=== PATIENT | male | born 1945 | race Caucasian/White ===

== ENCOUNTER 2017-07-26 11:07 | Outpatient (CLI) | payer MEDICARE, BC | END 2017-07-26 11:08 | disposition home or self-care (01) | LOC: CTENTCT 11:07 | PROVIDERS: ATTEND Otolaryngology Plastic Surgery within the Head & Neck | DX: J32.9 Chronic sinusitis, unspecified (principal) | CPT/HCPCS: 70486 ==

== ENCOUNTER 2017-09-22 10:08 | Inpatient (IN) | payer MEDICARE, BC ==
[2017-09-22] MEDS ORDERED: Ondansetron HCl/PF 4 MG/2 ML Vial ONE (10:37)
[2017-09-22] MEDS ORDERED: Famotidine/PF 20 mg/2ml Vial ONE (10:38)
[2017-09-22] MEDS ORDERED: Mag-Al 1200 mg/1200 mg/30 ML UDCUP ONE (10:38)
[2017-09-22] MEDS ORDERED: Lidocaine Viscous Sol 2% 15 ml UD Cup ONE (10:38)
[2017-09-22 10:46] LABS: #Eosinphils 0.1 thou/uL (0.0-0.7); #Lymphocytes 1.2 thou/uL (1.20-3.40); #Monocytes 0.6 thou/uL (0.11-0.59); #Neutrophils 4.4 thou/uL (1.40-6.50); %Basophils 0.5 % (0.0-1.0); %Lymphocytes 18.3 % (21.0-51.0); %Monocytes 9.2 % (0.0-10.0); Hematocrit 38.5 % (42.0-52.0); Mean Platelet Volume 6.8 fL (7.4-10.4); White Blood Cell (WBC) Count 6.3 thou/uL (4.8-10.8)
[2017-09-22 11:12] LABS: Troponin I Less than 0.010 ng/mL (< 0.028)
[2017-09-22 11:31] LABS: Anion Gap 11 mmol/L (10-20); BUN (Urea Nitrogen) 16 mg/dL (8.4-25.7); Calc. Creatinine Clearance 0 mL/min (70-130); Carbon Dioxide 23 mmol/L (23-31); Chloride 106 mmol/L (98-107); Estimated GFR-MDRD 70
[2017-09-22 11:32] LABS: ALT (SGPT) 20 U/L (8-55); AST (SGOT) 27 U/L (5-34); Alkaline Phosphatase 70 U/L (40-150); Bilirubin, Total 0.7 mg/dL (0.2-1.2); Calcium 10.1 mg/dL (7.8-10.44); Globulin 4.8 g/dL (2.4-3.5); Protein, Total 8.6 g/dL (5.8-8.1)
[2017-09-22] MEDS ORDERED: ISOVUE-370 76%-LOCM 1 ML ONE (11:42)
--- NOTE | 2017-09-22 11:52 | RAD ---
CHEST 1 VIEW: Date: 09/22/17 COMPARISON: 10/03/16. HISTORY: Chest pain x4 days. FINDINGS: Normal cardiac silhouette. Pulmonary vessels and hilum are normal. No consolidation or mass. No pneum othorax or osseous abnormalities. IMPRESSION: No acute cardiopulmonary process. POS: [facility]
--- NOTE | 2017-09-22 14:12 | CT ---
ABDOMEN CT WITH CONTRAST PELVIC CT WITH CONTRAST: Date: 09/22/17 COMPARISON: 09/25/13. HISTORY: Chest tightness x4-5 days. Previous smoker. Lethargic. TECHNIQUE: Abdomen and pelvic CT are performed with IV contrast. Enteric contrast was not administered. Coronal reformatted images are submitted for interpretation. FINDINGS: ABDOMEN CT: Incompletely evaluated right hilar mass measuring 2.2 x 2.3 cm may represent a right hilar lymph node . There is an incompletely evaluated nodule in the right lower lobe measuring 2.6 x 1.5 cm. Heart siz e is within normal limits. No evidence of significant pericardial fluid. The descending thoracic aort a and abdominal aorta have normal caliber. No periaortic fat stranding. Symmetric attenuation of the psoas muscles. Gallbladder is surgically absent. Intra and extrahepatic portal vein is patent. The liver, pancreas, and right adrenal gland have appropriate enhancement. There is a 1.2 cm nodule associated with the le ft adrenal gland, incompletely evaluated. Subcentimeter hypodensity in the spleen cannot be further a ssessed. Hypodensities in the left and right kidney may represent cortical cysts. Symmetric enhancement of the kidneys. Bilaterally, no obstructive uropathy. Limited evaluation of the alimentary canal due to lack of oral contrast. No evidence of bowel obstruction. Ileocecal junction is normal. Normal caliber air-filled appendix. T here is evidence of diverticulosis, without evidence of diverticulitis. There is evidence of periportal lymphadenopathy, measuring 8.9 x 12.8 cm on the coronal images. There is an enlarged paraesophageal lymph node measuring 3.2 x 2.9 cm, enlarged gastrohepatic lymph node m easuring 1.2 x 1.4 cm, enlarged perigastric lymph node measuring 1.4 x 2.3 cm, and enlarged aortocava l lymph node measuring 1.8 x 1.4 cm. There is no mesenteric mass, free air, or free fluid. PELVIC CT: Enlarged bilateral external iliac lymph nodes measuring 1.6 x 2.7 on the right and 1.5 x 2.2 cm on th e left. Enlarged bilateral inguinal lymph nodes are also noted. No pelvic mass, free air, or free flu id. Urinary bladder is unremarkable. Prostatic calcifications are noted. There are no osteoblastic or osteolytic lesions. IMPRESSION: 1. Lymphadenopathy as detailed above. There is concern for possible lymphoma Correlate clinically. 2. Incompletely evaluated nodule in the right lower lobe. 3. Indeterminate left adrenal nodule. POS: [facility]
[2017-09-22] MEDS ORDERED: Acetaminophen 325 MG TAB PO PRN (15:20)
[2017-09-22] MEDS ORDERED: Ondansetron HCl/PF 4 MG/2 ML Vial IVP PRN (15:20)
[2017-09-22] MEDS ORDERED: Ondansetron ODT 4 MG TAB SL PRN (15:20)
--- NOTE | 2017-09-22 16:43 | HP ---
HISTORY OF PRESENT ILLNESS: Mr. Coley is a 72-year-old male treated by Dr. Jose Ramon Martinez wi th known hypertension, hyperlipidemia, and mild CAD by 10/04/[address] Ellen kirk, who presents to the hospital with chest pain and abdominal pain. He indicates that he has had chest pain and abdominal pain for years. Over the last few weeks, he has been having abdominal pain, chest pain, and nausea following a meal. It is intermittent condition that appears to be not concer shai except following meals. Just a few weeks ago, he underwent an EGD by Dr. Leyva to assist in evalu ation of this problem. He denies any fever, cough, or sore throat, but does have some chronic rhinor sara and he did have some significant nasal congestion that was treated recently with a balloon plast y to the sinus area. He also reports having some postauricular lumps that was previously treated by ENT with antibiotics and without biopsy. He had showed with the emergency room doctor that he had so me shortness of breath and some sweating. He also tells me that while he has not had any major sweat ing episodes he has felt warm lot lately and this is corroborated by his . PAST MEDICAL HISTORY: 1. Hypertension. 2. Hyperlipidemia. 3. GERD. 4. History of prostatitis. 5. Mild coronary artery disease. 6. Obesity. 7. Nasal congestion. PAST SURGICAL HISTORY: 1. Colon polyp resection in 2014. 2. Hemorrhoidectomy. 3. Cholecystectomy. 4. Vasectomy. 5. Cystoscopy. 6. Sinus procedure/balloon plasty. 7. Cardiac catheterization on 10/04/2016, which showed mild disease, (about 20% numerous vessels). ALLERGIES: No known drug allergies. CURRENT MEDICATIONS: Amlodipine 5 mg daily, aspirin 81 mg daily, losartan 25 mg daily, metoprolol 50 mg twice daily, tamsulosin 0.4 mg daily, fish oil 1000 two twice daily, Dexilant 60 mg daily, finast eride 5 mg daily, atorvastatin 25 mg daily. SOCIAL HISTORY: The patient is . He has two children. He has a remote [id number] history of tobacco. He occasionally drinks alcohol. 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 PHYSICAL EXAMINATION: VITAL SIGNS: Blood pressure 131/62, pulse 58, respiratory rate 18, temperature 97.4, 96% pulse oxime try. GENERAL: Obese male in no acute distress, sitting in his chair independently. He is alert and oriented x3. His mood is euthymic. His thought processes are coherent, logical, and goal direc monica without loose association or flight of ideas. HEENT: No conjunctivitis. Oral cavity without erythema or exudate. NECK: Supple. No thyromegaly. LUNGS: Clear to auscultation. CARDIAC: Regular rate and rhythm without murmur, gallop or rub. ABDOMEN: Protuberant, soft, nontender to palpation in all 4 quadrants. No lower extremity edema, no ntender. LYMPH NODES: Lumps/lymph nodes are seen behind this left ear, superficial, about 2 cm in diameter. Behind his right ear, he has one that is about 1.5 cm in diameter and at the base of his right latera l neck is one that is also 1.5 cm in diameter. IMAGING STUDIES: Electrocardiogram normal sinus rhythm, no acute ST-T wave changes. LABORATORY AND X-RAY FINDINGS: White blood cell count 6.3, hemoglobin 12.8. Sodium 136, potassium 4 .1, CK-MB is 8.5. Troponin I is normal. Liver enzymes normal. BUN 16, creatinine 1.04. Chest x-ra y is normal. Periportal lymphadenopathy measuring 8.9 x 12.8 cm. There is an enlarged paraesophagea l lymph node measuring 3.2 x 2.9 and others including gastrohepatic, perigastric and aortocaval lymph nodes. In the pelvic area, there is also external iliac lymph node enlargement that is seen. ASSESSMENT: 1. Postprandial abdominal pain and nausea. 2. Chest pain that seems atypical with normal EKG and nonelevated troponin I. 3. Mild coronary artery disease. 4. Diffuse lymphadenopathy in locations specified above. Discussed with patient and his the ra nge of possibilities to include mild infectious disease process versus other more serious and urgent problem such as a malignancy. 5. History of hypertension, history of hyperlipidemia, history of gastroesophageal reflux disease, h istory of prostatitis, obesity. PLAN: 1. Hospitalization. 2. Serial cardiac enzymes. 3. Specialist consultation.
[2017-09-22 17:19] LABS: Troponin I Less than 0.010 ng/mL (< 0.028)
[2017-09-23] MEDS: Losartan Potassium 25 MG TAB PO SCH (08:40)
[2017-09-23] MEDS: Finasteride 5 MG TAB PO SCH (08:40)
[2017-09-23] MEDS: Fish Oil 1,000 MG CAP PO SCH (08:40)
[2017-09-23] MEDS: Mag-Al 1200 mg/1200 mg/30 ML UDCUP PO SCH ×3 (08:40→17:07)
[2017-09-23] MEDS: Amlodipine 5 MG TAB PO SCH (08:40)
[2017-09-23] MEDS: Atorvastatin Calcium 20 MG TAB PO SCH (08:42)
[2017-09-23] MEDS: Tamsulosin HCl 0.4 MG CAP PO SCH (08:42)
[2017-09-23] MEDS: Aspirin 81 mg Enteric Coated Tablet PO SCH (08:42)
[2017-09-23] MEDS: 1/2 NS w/KCL 20 mEq 1,000 ML IV SCH ×3 (10:47→21:23)
--- NOTE | 2017-09-23 10:52 | PRG ---
DATE OF SERVICE: 09/23/2017 HISTORY OF PRESENT ILLNESS: This is a 72-year-old white male with a 3-week history of nausea. Appro ximately 3 weeks ago, he was seen by Dr. Romeo Bo and underwent angioplasty of the sinuses. He was placed on antibiotics. Ever since then, he has had some nausea. He saw Dr. Leyva this past weeke nd and underwent an EGD which the patient states revealed some gastritis. However, the patient has h ad persistent nausea and a poor appetite. A CT scan was performed which revealed diffuse lymphadenop athy along the spinal cord. The patient also reports that over the past 3 weeks he has noticed some swelling behind his ears and of his neck. OBJECTIVE: VITAL SIGNS: Temperature 97.0, pulse 73, respirations 18, blood pressure 137/63, pulse ox 96. GENERAL: The patient is complaining of nausea. HEENT: Remarkable 3-4 cm lymph node on the supraclavicular region with also enlarged lymph nodes pos tauricular. HEART: Regular rate and rhythm. LUNGS: Clear. ABDOMEN: Soft, nontender. LABORATORY: Today, none. ASSESSMENT: 1. Lymphadenopathy, rule out lymphoma. Oncology has been consulted. We will consult General Surger y for a biopsy. The patient has a strong likelihood of having lymphoma. 2. Nausea secondary to #1 and also could have nausea secondary to a course of antibiotics per Dr. Yolie strickland. 3. Three weeks post-sinus surgery. 4. Hypertension. 5. Hyperlipidemia. 6. Reflux. 7. History of prostatitis. 8. Coronary artery disease. 9. Chronic sinusitis. PLAN: 1. Hydrate with IV fluids. 2. Protonix q.12. 3. Phenergan p.r.n. 4. General surgery consult for possible biopsy of the lymphadenopathy. 5. Consult Dr. Leyva in the a.m. for followup. The patient has been followed by Dr. Gonzales.
[2017-09-23] MEDS ORDERED: Promethazine HCl 25 MG/ML VIAL IM/IV PRN (11:01)
[2017-09-23] MEDS ORDERED: Sodium Chloride 0.9% 500 ML IV SCH (11:15)
[2017-09-23] MEDS ORDERED: ISOVUE-370 76%-LOCM 1 ML ONE (11:47)
--- NOTE | 2017-09-23 15:48 | CT ---
CT NECK WITH CONTRAST CT CHEST WITH CONTRAST: Date: 09/23/17 INDICATION: Adenopathy. FINDINGS: There are abnormal enlarged lymph nodes of the neck and chest, with dominant teresa size of 2.8 cm in diameter involving the posterior right neck at the upper cervical region. There are additional mildly enlarged bilateral cervical chain lymph nodes, as well as periclavicular lymph nodes. There is congl omerate adenopathy of the subcarinal region which measures approximately 5.1 cm transverse. Patient's previously described teresa mass of the abdomen is incidentally imaged. Reference preceding report fo r details. There is a rounded pulmonary nodule with punctate calcification of the subpleura of the ri ght lower lobe measuring approximately 15.0 mm in diameter. There is punctate subpleural nodularity o f the lungs, bilaterally, with additional scattered ground-glass nodularity. Scattered osseous degene rative changes are present. IMPRESSION: Adenopathy of the neck and chest. Consider PET CT for further evaluation, in order to discern metabol ic activity of the patient's diffuse adenopathy. POS: [facility]
--- NOTE | 2017-09-23 18:43 | CON ---
DATE OF CONSULTATION: 09/23/2017 REASON FOR CONSULTATION: Generalized adenopathy. HISTORY OF PRESENT ILLNESS: The patient is a 72-year-old man with a known history of hypertension, h yperlipidemia, and coronary artery disease who presented to the hospital with atypical chest and abdo jose pain. This was associated with postprandial nausea. He also gives history of enlarged cervica l lymph nodes present for at least one year and unresponsive to antibiotics. Within the last few wee , he did undergo an EGD by Dr. Leyva, which reportedly was negative for serious findings. He has dill d no fever, night sweats, or significant weight loss. Evaluation during the hospitalization includes CBC, which is normal except for a hemoglobin of 12.8. The white blood cell count is 6.3 with normal differential. Platelet count is 297,000. Chemistries are normal except for an elevated globulin at 4.8. Imaging has included a CT scan of the abdomen and pelvis, which shows an incompletely evaluated right hilar mass measuring 2.3 cm and a right lower lobe nodule measuring 2.6 cm. There is a small 1.2 cm nodule in the left adrenal gland. There is periportal adenopathy measuring 8.9 x 12.8 cm and an enl arged paraesophageal lymph node measuring 3.2 cm in maximum dimension. Additional pericaval adenopat hy and bilateral inguinal adenopathy and external iliac nodes are noted. I am asked to see the patie nt to provide further management recommendations. ALLERGIES: None. MEDICATIONS ON ADMISSION: Amlodipine, aspirin, losartan, metoprolol, tamsulosin, fish oil, Dexilant, finasteride and atorvastatin. PAST MEDICAL ILLNESS: There is a history of hypertension, hyperlipidemia, GERD, prostatitis, mild co ronary disease, obesity, and nasal congestion. PAST SURGICAL HISTORY: He had a colon polyp, polyp removed in 2014. He has undergone hemorrhoidecto my, cholecystectomy, vasectomy, and sinus balloon plasty in the recent past. He has also undergone a cystoscopy. SOCIAL HISTORY: The patient is with 2 children. His is present during my evaluation to day. He has a remote [id number] history of tobacco. He does not drink alcohol heavily. 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 REVIEW OF SYSTEMS: Except as mentioned in the history of present illness, he denies significant card iopulmonary, GI, , musculoskeletal, or neurological complaints. PHYSICAL EXAMINATION: VITAL SIGNS: Temperature 97.4, pulse 56 and regular, respirations 16, blood pressure 127/73. GENERAL: The patient is a well-developed and well-nourished, but obese man in no acute distress. He is alert, oriented, and cooperative. HEENT: The extraocular movements are intact. NECK: Supple, without masses. LUNGS: Clear. CARDIOVASCULAR: Regular rate and rhythm without murmur, rub, gallop or click. ABDOMEN: Obese. He is obese, but there is no mass, organomegaly, masses or ascites. EXTREMITIES: No clubbing, cyanosis or edema. SKIN: Normal. LYMPH: There is generalized adenopathy in the anterior and posterior cervical regions, supraclavicul ar area, bilateral axilla and bilateral axilla. The nodes in the cervical region measuring up to 2-3 cm. The lymph nodes in the axillae bilaterally measure up to perhaps 4 cm. MUSCULOSKELETAL: No active arthritis. NEUROLOGIC: No focal findings. LABORATORY: See history of present illness. IMAGING: See history of present illness. IMPRESSION: Generalized lymphadenopathy typical of lymphoma. 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 His symptoms may very well be related to t he large teresa mass in the daljit hepatis. I did discuss the case with Dr. Casey, General Surgery, who has been consulted. We agreed, proceeding with a CT guided core biopsy of an axillary lymph node . Should establish a diagnosis with minimal morbidity. I have ordered a serum protein electrophores is and LDH for further evaluation of the elevated total protein and the question of possible lymphoma . Thanks very much for allowing me to provide my recommendations. I will follow with you. If the nanette ent is otherwise able to be discharged, I am happy to follow him in the office after the CT guided bi opsy.
[2017-09-23] MEDS ORDERED: Zolpidem Tartrate 5 MG TAB PO PRN (21:23)
--- NOTE | 2017-09-24 00:09 | CON ---
DATE OF CONSULTATION: 09/23/2017 CHIEF COMPLAINT: Lymphadenopathy. HISTORY: Mr. Coley is a 72-year-old man who presented to the emergency room with epigastric and ches t pain and nausea. He states that for the past few weeks he has been having intermittent problems wi th nausea and epigastric pain radiating up into his chest after meals. He does have a history of ref lux and underwent an EGD by Dr. Leyva on Sunday, which was reportedly unremarkable. He also recently went to ENT for some lumps in his neck and was placed on antibiotics. When he came to the emergency room, he underwent CT of the abdomen and pelvis and this revealed extensive lymphadenopathy as well as some hilar adenopathy and a small mass in his lung. He had enlarged iliac lymph nodes but the ing uinal lymph nodes were not very enlarged. He states that lumps in his neck has been present for 6 mo nths to a year, but they are not painful, so he had not previously brought them to medical attention. He has 2 lumps on the left side of his neck, one on the right and one in the right supraclavicular area. He states that though one on the left has gotten a little smaller, but now he has 2 instead of 1. He denies any history of trauma or infection to the upper body or head and he has not noticed lizeth mps anywhere else. The pain in his epigastric area radiates up into his chest and somewhat to his ba ck, but the nausea is making it difficult for him to either for him to eat at all. His says sabiha t he has not been eating at all for the past couple of days due to the nausea. He denies weight loss , although he thinks he has lost a little bit of weight recently because of not eating. He has had s ome episodes of feeling hot and sweaty, but no soaking sweats. PAST MEDICAL HISTORY: Hypertension, hyperlipidemia, GERD, coronary artery disease, prostatitis, and obesity. PAST SURGICAL HISTORY: Hemorrhoidectomy and cholecystectomy. He has also undergone a vasectomy and cystoscopy, sinus surgery and a cardiac catheterization which showed mild disease and he has had a co smith polyp removed a couple of years ago. ALLERGIES: He has no known drug allergies. OUTPATIENT MEDICATIONS: Include amlodipine, aspirin, losartan, metoprolol, Flomax, fish oil, Dexilan t, finasteride and atorvastatin. SOCIAL HISTORY: He is a former smoker, but quit many years ago. Drinks socially and does not use an y illicit drugs. PHYSICAL EXAMINATION: GENERAL: Reveals a healthy-appearing man in no acute distress. He is obese. HEENT: Reveals 2 enlarged lymph nodes in the left posterior chain which are mobile and nontender and one enlarged lymph node in the right postauricular area as well as a larger lymph node in the right supraclavicular fossa. He has a small lipoma over his left shoulder. He has a large lymph node in h is left axilla which is mobile. I do not appreciate any enlarged lymph nodes on the right. HEART: Regular in its rate and rhythm without murmurs, rubs or gallops. LUNGS: Clear to auscultation bilaterally. ABDOMEN: Soft and nondistended. He is mildly tender to palpation in the epigastric area without pal pable masses or hernias. EXTREMITIES: Warm and well perfused without edema. No palpable femoral lymph nodes. LABORATORY AND X-RAY FINDINGS: White count is normal. Electrolytes are unremarkable. Troponin is n egative. CT images are reviewed and I agree with the written report. He has enlarged lymph nodes in the paraesophageal and periportal areas as well as in the gastrohepatic area, aortocaval and iliac a reas. ASSESSMENT: 1. Abdominal pain and nausea. This could potentially be related to the gastrohepatic lymph nodes wh ich is quite large and could conceivably be causing some gastric outlet emptying issues. He has prev iously undergone cholecystectomy. His LFTs are normal and a recent EGD was unremarkable. I recommen d symptomatic treatment and continue proton pump inhibitors for this. 2. Extensive lymphadenopathy. The most easily accessible lymph nodes would likely be the left axill wendie lymph node which is quite enlarged. This should be easily accessible to ultrasound guided core b iopsy. If the left axillary lymph node is not suitable then the right supraclavicular one of the nec k lymph nodes could be sampled. If core biopsy is nondiagnostic, then excisional lymph node biopsy c an be done. I have written an order for ultrasound guided core biopsy by Radiology tomorrow. If thi s is inadequate I will follow up and schedule him for an excisional biopsy. In addition, I have orde red a CT of the neck and chest since these areas were not previously imaged and knowing the extent of his adenopathy is important for staging and monitoring purposes.
[2017-09-24 05:49] LABS: #Eosinphils 0.3 thou/uL (0.0-0.7); #Lymphocytes 1.3 thou/uL (1.20-3.40); #Monocytes 0.7 thou/uL (0.11-0.59); #Neutrophils 3.5 thou/uL (1.40-6.50); %Basophils 0.6 % (0.0-1.0); %Eosinophils 4.6 % (0.0-10.0); %Lymphocytes 22.3 % (21.0-51.0); %Monocytes 11.5 % (0.0-10.0); Hematocrit 36.5 % (42.0-52.0); Mean Platelet Volume 6.9 fL (7.4-10.4); Red Blood Cell (RBC) Count 3.87 mill/uL (4.70-6.10); White Blood Cell (WBC) Count 5.7 thou/uL (4.8-10.8)
[2017-09-24 06:13] LABS: Anion Gap 8 mmol/L (10-20); BUN (Urea Nitrogen) 13 mg/dL (8.4-25.7); Calc. Creatinine Clearance 105 mL/min (70-130); Calcium 9.7 mg/dL (7.8-10.44); Carbon Dioxide 26 mmol/L (23-31); Chloride 107 mmol/L (98-107); Estimated GFR-MDRD 64
--- NOTE | 2017-09-24 08:19 | PRG ---
DATE OF SERVICE: 09/24/2017 SUBJECTIVE: The patient is doing well this morning. No nausea this morning. The patient was given an IV bolus yesterday as well as Protonix and Phenergan. He was also seen by Dr. Gallegos and Dr. Zackery judd. OBJECTIVE: VITAL SIGNS: Temperature 97.9, pulse 60, respirations 17, pulse ox 94, blood pressure 131/59. HEART: Regular rate and rhythm. LUNGS: Clear. ABDOMEN: Soft. LABORATORY DATA: White count 5.7, H&H is 12 and 36, platelet of 263. Electrolytes normal. Creatini ne 1.1, BUN 13, LDH is 272, blood sugar is 91. ASSESSMENT: 1. 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 2. Nausea, improved. Could be related to the lymphoma versus previous antibiotics. 3. Postop 3 weeks status post sinus surgery. 4. Hypertension. 5. Hyperlipidemia. 6. Reflux. 7. Prostatitis history. 8. Coronary artery disease. 9. Chronic sinusitis. PLAN: 1. Scheduled with Dr. Casey today to undergo a left axillary lymph node biopsy. 2. Continue Phenergan and Protonix. 3. Possible discharge today.
[2017-09-24] MEDS: Mag-Al 1200 mg/1200 mg/30 ML UDCUP PO SCH ×2 (09:54→13:59)
[2017-09-24] MEDS: Fish Oil 1,000 MG CAP PO SCH ×2 (09:55→10:00)
[2017-09-24] MEDS: Finasteride 5 MG TAB PO SCH (09:55)
[2017-09-24] MEDS: Losartan Potassium 25 MG TAB PO SCH (09:55)
[2017-09-24] MEDS: Tamsulosin HCl 0.4 MG CAP PO SCH (09:56)
[2017-09-24] MEDS: 1/2 NS w/KCL 20 mEq 1,000 ML IV SCH (09:56)
[2017-09-24] MEDS: Atorvastatin Calcium 20 MG TAB PO SCH (09:56)
[2017-09-24] MEDS: Aspirin 81 mg Enteric Coated Tablet PO SCH (09:56)
[2017-09-24] MEDS: Amlodipine 5 MG TAB PO SCH (09:56)
[2017-09-24 11:12] LABS: PTT 29.6 SEC (22.9-36.1); Prothrombin Time 13.6 SEC (12.0-14.7)
[2017-09-24] MEDS ORDERED: Lidocaine 1% PF 5 ML VIAL ONE (11:26)
[2017-09-24 13:41] VITALS: BMI 37.6
[2017-09-24 15:58] VITALS: BP 125/58; TEMP 97.9
--- NOTE | 2017-09-25 11:23 | DIS ---
DATE OF ADMISSION: 09/22/2017 DATE OF DISCHARGE: 09/24/2017 DISCHARGE DIAGNOSES: 1. Generalized lymphadenopathy, rule out lymphoma. 2. Nausea, improved. 3. Postop #3, status post sinus surgery. 4. Hypertension. 5. Hyperlipidemia. 6. Reflux. 7. Prostatitis history. 8. Coronary artery disease. 9. Chronic sinusitis. DISCHARGE MEDICATIONS: Amlodipine 5 q. day, aspirin 81 q. day, losartan 25 q. day, metoprolol 50 b.i .d., Flomax 0.4 q. day, fish oil 1000 b.i.d., Dexilant 60 q. day, finasteride 5 q. day and Lipitor 25 q. day. BRIEF HISTORY: This is a 72-year-old white male with the above medical problems who presented to the hospital with chest pain and abdominal pain. Over the past several weeks, this has become progressi vely worse. He recently had an EGD, which was unremarkable by Dr. Leyva. He denied any fever, cough or sore throat. He also recently underwent sinus angioplasty by Dr. Bo. However, the patient pr esented to the emergency room with chest pain, some shortness of breath and sweating. He has just no t been feeling well. HOSPITAL COURSE: The patient appeared somewhat dehydrated. He has had quite a bit of nausea lately. His chest pain was felt not to be cardiac related. However, on examination, he was found to have d iffuse lymphadenopathy. A CAT scan was obtained of his chest and abdomen and he was found to have di ffuse lymphadenopathy consistent with lymphoma. Dr. Casey was consulted for a lymph node biopsy, w [facility] results are pending. Dr. Gallegos was also consulted. He will see the patient on an outpatient basis after his pathology report returns. The patient was given IV fluids. He is now feeling much b jo, ready for discharge. He will be given some Phenergan and follow up in the office in the near future. The possibility cancer has been discussed with the patient and hopefully his prognosis will be good.
[2017-09-26 12:15] LABS: A/G Ratio 0.8 (0.7-1.7); Albumin 3.2 g/dL (2.9-4.4); Alpha 1 0.2 g/dL (0.0-0.4); Alpha 2 0.7 g/dL (0.4-1.0); Gamma 2.2 g/dL (0.4-1.8); Globulin, Total 4.2 g/dL (2.2-3.9); M-Spike 0.5 g/dL (Not Observed)
== END 2017-09-24 16:59 | disposition home or self-care (01) | DRG 824 ==
LOC: ERS 10:08 → 2NO 15:17
PROVIDERS: ADMIT Family Medicine; ATTEND Family Medicine
PROC: 07B63ZX Excision of Left Axillary Lymphatic, Percutaneous Approach, Diagnostic (ICD-10-PCS; principal; 2017-09-24)
DX: C85.11 Unspecified B-cell lymphoma, lymph nodes of head, face, and neck (principal); C85.92 Non-Hodgkin lymphoma, unspecified, intrathoracic lymph nodes; I10 Essential (primary) hypertension; C85.84 Other specified types of non-Hodgkin lymphoma, lymph nodes of axilla and upper limb; C85.93 Non-Hodgkin lymphoma, unspecified, intra-abdominal lymph nodes; E78.5 Hyperlipidemia, unspecified; Z87.891 Personal history of nicotine dependence; I25.10 Atherosclerotic heart disease of native coronary artery without angina pectoris; E66.9 Obesity, unspecified; Z68.37 Body mass index [BMI] 37.0-37.9, adult; K21.9 Gastro-esophageal reflux disease without esophagitis; J32.9 Chronic sinusitis, unspecified
CPT/HCPCS: 36415; 38505; 70491; 71010; 71260; 74177; 80048; 80053; 82553; 83615; 83880; 84165; 84484; 85025; 85610; 85730; 88184; 88307; 88341; 88342; 88360; 93005; 96374; 96375; J2001; J2405; J2550; Q0162; S0028

== ENCOUNTER 2017-10-12 13:33 | Outpatient (CLI) | payer MEDICARE, BC | END 2017-10-12 13:34 | disposition home or self-care (01) | LOC: ULT 13:33 | PROVIDERS: ATTEND Internal Medicine Hematology & Oncology | DX: Z51.11 Encounter for antineoplastic chemotherapy (principal); C83.18 Mantle cell lymphoma, lymph nodes of multiple sites; I07.1 Rheumatic tricuspid insufficiency; Z79.899 Other long term (current) drug therapy | CPT/HCPCS: 93306 ==

== ENCOUNTER 2017-10-17 05:54 | Day surgery (SDC) | payer MEDICARE, BC ==
[2017-10-16 08:32] VITALS: BMI 38.2
[2017-10-17] MEDS ORDERED: CEFAZOLIN/Water 2 GM/20 ML SYRINGE ONE (06:53)
[2017-10-17] MEDS ORDERED: Bupivacaine/Epinephrine 0.25% 30 ML VIAL ONE (06:55)
[2017-10-17] MEDS ORDERED: Lidocaine 2% PF 5 ML VIAL ONE (06:55)
[2017-10-17] MEDS ORDERED: PROPOFOL 40 ML ONE (08:19)
--- NOTE | 2017-10-17 09:48 | RAD ---
CHEST ONE VIEW: History: Left Mediport placement. Comparison: 09-22-17 FINDINGS: There is a Mediport catheter placed with the tip in the inferior SVC. Heart size is prominent. Promin ence of the hilum. Mild interstitial prominence. IMPRESSION: Uncomplicated placement of Mediport catheter. POS: [facility]
[2017-10-17] MEDS ORDERED: PROPOFOL 200 MG/20 ML VIAL ONE (12:56)
--- NOTE | 2017-10-24 16:41 | PDOC.OP ---
Operative Note - Operative Note Operative Note: PROCEDURE: Left subclavian MediPort placement with fluoroscopic guidance SURGEON: Trudy Casey M.D. DATE OF PROCEDURE: 10/17/2017 PREOPERATIVE DIAGNOSIS: Lymphoma POSTOPERATIVE DIAGNOSIS: Lymphoma HISTORY: Patient is diagnosed with lymphoma. Chemotherapy has been recommended and the oncologist has requested MediPort placement for this. OPERATIVE PROCEDURE IN DETAIL: After informed consent was obtained and appropriate preoperative antibiotics were administered, the patient was taken to the operating room and placed in supine position and monitored anesthesia care was administered. The patient was then placed in Trendelenburg position and the subclavian vein accessed easily on the first attempt with excellent flow of dark venous non-pulsatile blood. A wire threaded easily and was confirmed to be in the superior vena cava by fluoroscopy. Additional local anesthesia was infused to the skin and subcutaneous tissues lateral and inferior to the access site. The skin incision was extended from the wire laterally and a subcutaneous pocket developed inferiorly. A Mediport was obtained and confirmed to fit in the subcutaneous pocket. This was secured inferiorly to the pectoralis fascia with a Prolene suture, which was clamped, but not tied. The dilator and sheath were then placed over the wire and the dilator and wire removed leaving the sheath in place. The clamped MediPort tubing was tunneled through the sheath, which was then split and removed leaving the MediPort tubing in place. The tubing was adjusted until the tip was confirmed by fluoroscopy to be in the superior vena cava just above the atrium. The tubing was clamped at the skin level and cut and the tubing secured to the port, which was then placed in the subcutaneous pocket. The previously placed suture was secured and two additional sutures were placed to fix the port in place within the pocket. The port was aspirated with the Wilson needle and had excellent flow of dark venous non-pulsatile blood and easily flushed without resistance. The subcutaneous tissues were closed with a running Monocryl suture, following which the skin was closed with a running subcuticular Monocryl suture. Dermabond dressings were placed and the hub was again accessed through the skin and confirmed to easily aspirate and easily flush. The course of the catheter was confirmed by fluoroscopy to be smooth with the tip appropriately located in the superior vena cava. The patient was taken her back to the day stay unit in good condition. Estimated blood loss was minimal. There were no complications. There were no specimens.
== END 2017-10-17 09:45 | disposition home or self-care (01) ==
LOC: SDC 05:54
PROVIDERS: ATTEND Surgery
PROC: 05H633Z Insertion of Infusion Device into Left Subclavian Vein, Percutaneous Approach (ICD-10-PCS; principal; 2017-10-17)
DX: C85.18 Unspecified B-cell lymphoma, lymph nodes of multiple sites (principal); I10 Essential (primary) hypertension; E78.5 Hyperlipidemia, unspecified; K21.9 Gastro-esophageal reflux disease without esophagitis; Z90.49 Acquired absence of other specified parts of digestive tract; Z98.52 Vasectomy status; Z98.890 Other specified postprocedural states; Z87.891 Personal history of nicotine dependence
CPT/HCPCS: 36561; 71045; C1788; J0131; J1642; J2001; J2704

== ENCOUNTER 2017-10-25 15:03 | Outpatient (CLI) | payer MEDICARE, BC ==
--- NOTE | 2017-10-26 11:55 | PET ---
PET CT: HISTORY: 72-year-old male with Mantle cell-type non-Hodgkin's B-cell lymphoma. Exam was requested for initial staging. TECHNIQUE: PET scanning with CT attenuation correction was performed from the base of the brain through the prox imal thighs following the intravenous administration of 10 mCi [id number] in the right an tecubital fossa. Imaging was performed after an uptake interval of 51 minutes. CORRELATION: CT neck and chest of 09/23/[address] abdomen and pelvis of 09/22/17. FINDINGS: Numerous hypermetabolic lymph nodes are seen on both sides of the diaphragm including the neck with a maximum SUV of 7.3, right axilla with a maximum SUV of 7, left axilla with a maximum SUV of 5, media stinum with a maximum SUV of 7.4, right retrocrural region with an SUV of 6.4, abdomen with a maximum SUV of 10.8, pelvis with a maximum SUV of 4, right inguinal region with an SUV of 2.9, and left ingu inal region with an SUV of 2.6. No hypermetabolic liver, adrenal, or skeletal lesions are seen. There is physiologic activity in the GI and tracts and the visualized portions of the brain. The CT scan used for attenuation correction demonstrates no evidence of pleural effusions or ascites. Patchy areas of mass-like consolidation have developed in the lungs bilaterally since the CT scan. IMPRESSION: 1. Extensive viable lymphoma on both sides of the diaphragm. 2. New patchy areas of mass-like consolidation in the lungs bilaterally, new since 09/23/17. Infect ion versus neoplasm. POS: [facility]
== END 2017-10-25 15:04 | disposition home or self-care (01) ==
LOC: PET 15:03
PROVIDERS: ATTEND Internal Medicine Hematology & Oncology
DX: C83.18 Mantle cell lymphoma, lymph nodes of multiple sites (principal)
CPT/HCPCS: 78815; A9552

== ENCOUNTER 2018-01-17 08:54 | Outpatient (CLI) | payer MEDICARE, BC ==
--- NOTE | 2018-01-17 14:44 | PET ---
PET CT: HISTORY: 72-year-old male with mantle cell type, nonHodgkin's B-cell lymphoma. Last chemotherapy was in December 2017. Exam requested for restaging. TECHNIQUE: PET scanning with CT attenuation correction was performed from the base of the brain through the prox imal thighs following the intravenous administration of 11.6 mCi [id number]. Imaging was performed after an uptake interval of 48 minutes. COMPARISON: PET scan of 10/25/17. FINDINGS: There has been interval resolution of multilevel teresa hypermetabolism seen on both sides of the diap hragm on the previous study. No teresa hypermetabolism is seen at the neck, chest, axilla, abdomen, pe lvis, or inguinal regions on the current exam. No hypermetabolic liver, adrenal, or skeletal lesions are identified. There is physiologic activity in the GI and tracts, and the visualized portions of the brain. The CT scan used for attenuation correction demonstrates no evidence of pleural effusions or ascites. Patchy mass-like areas of consolidation in the lungs bilaterally on the previous exam have resolved. The residual 18 mm peripheral nodule in the posterior aspect of the right lower lobe is stable. No a bnormal FDG localization is seen in this nodule. The nonenlarged residual lymph nodes in the mediastinum demonstrate uptake similar to the mediastinum blood pool (Deauville score of 2). IMPRESSION: Complete response to therapy since 10/25/17 (Deauville score of 2). POS: [facility]
== END 2018-01-17 08:55 | disposition home or self-care (01) ==
LOC: PET 08:54
PROVIDERS: ATTEND Internal Medicine Hematology & Oncology
DX: C83.18 Mantle cell lymphoma, lymph nodes of multiple sites (principal)
CPT/HCPCS: 78815; A9552

== ENCOUNTER 2018-05-10 13:00 | Outpatient (CLI) | payer MEDICARE, BC ==
[~2018-05-10 13:00] MED LIST: Iopamidol 370 76% 100 ML VIAL ONE
== END 2018-05-10 13:01 | disposition home or self-care (01) ==
LOC: BICCT 13:00
PROVIDERS: ATTEND Family Medicine
DX: R10.9 Unspecified abdominal pain (principal); R91.1 Solitary pulmonary nodule
CPT/HCPCS: 74178

== ENCOUNTER 2018-05-23 12:06 | Outpatient (CLI) | payer MEDICARE, BC ==
[2018-05-23] MEDS ORDERED: ISOVUE-370 76%-LOCM 1 ML ONE (15:21)
== END 2018-05-23 12:07 | disposition home or self-care (01) ==
LOC: BICCT 12:06
PROVIDERS: ATTEND Family Medicine
DX: R91.1 Solitary pulmonary nodule (principal); R93.8 Abnormal findings on diagnostic imaging of other specified body structures
CPT/HCPCS: 71260

== ENCOUNTER 2018-08-03 11:41 | Observation (INO) | payer MEDICARE, BC ==
[2018-08-03 12:05] LABS: #Eosinphils 0.2 thou/uL (0.0-0.7); #Lymphocytes 0.9 thou/uL (1.20-3.40); #Monocytes 0.5 thou/uL (0.11-0.59); #Neutrophils 4.2 thou/uL (1.40-6.50); %Basophils 0.2 % (0.0-1.0); %Eosinophils 3.1 % (0.0-10.0); %Lymphocytes 15.1 % (21.0-51.0); %Monocytes 9.2 % (0.0-10.0); %Neutrophils 72.4 % (42.0-75.0); Hemoglobin 13.6 g/dL (14.0-18.0); Mean Corpuscular Hemoglobin 31.4 pg (27.0-31.0); Mean Corpuscular Volume 92.3 fL (78.0-98.0); Mean Platelet Volume 6.9 fL (7.4-10.4); Platelet Count 331 thou/uL (130-400); RBC Distribution Width 12.4 % (11.5-14.5); Red Blood Cell (RBC) Count 4.32 mill/uL (4.70-6.10); White Blood Cell (WBC) Count 5.7 thou/uL (4.8-10.8)
[2018-08-03 12:23] LABS: ALT (SGPT) 20 U/L (8-55); AST (SGOT) 21 U/L (5-34); Albumin 4.5 g/dL (3.4-4.8); Alkaline Phosphatase 78 U/L (40-150); Anion Gap 11 mmol/L (10-20); BUN (Urea Nitrogen) 22 mg/dL (8.4-25.7); Bilirubin, Total 0.7 mg/dL (0.2-1.2); CK (CPK) 306 U/L (30-200); Calc. Creatinine Clearance 0 mL/min (70-130); Calcium 10.5 mg/dL (7.8-10.44); Carbon Dioxide 23 mmol/L (23-31); Chloride 106 mmol/L (98-107); Estimated GFR-MDRD 70; Globulin 3.4 g/dL (2.4-3.5); Glucose 103 mg/dL (83-110); Potassium 4.2 mmol/L (3.5-5.1); Protein, Total 7.9 g/dL (5.8-8.1); Sodium 136 mmol/L (136-145)
[2018-08-03 12:26] LABS: Troponin I Less than 0.010 ng/mL (< 0.028)
[2018-08-03] MEDS ORDERED: Nitroglycerin 0.4 MG TAB (25 Tab Bottle) ONE (12:37)
--- NOTE | 2018-08-03 13:18 | RAD ---
CHEST 1 VIEW: HISTORY: Pain. COMPARISON: 10/17/2017. FINDINGS: Stable left-sided MediPort catheter. There is atherosclerosis of the aorta. Normal cardiac silhouet te. The pulmonary vessels and hilum are normal. Costophrenic angles are clear. No consolidation or mass. No pneumothorax or osseous abnormalities. IMPRESSION: No acute cardiopulmonary process. POS: [facility]
[2018-08-03] MEDS ORDERED: Sodium Chloride 0.9% 1,000 ML IV SCH (15:12)
[2018-08-03] MEDS ORDERED: Acetaminophen 325 MG TAB PO PRN (15:12)
[2018-08-03] MEDS ORDERED: HYDROcodone/Acetaminophen 5/325 mg Tablet PO PRN ×2 (15:12)
[2018-08-03] MEDS ORDERED: Ondansetron HCl/PF 4 MG/2 ML Vial IVP PRN (15:12)
[2018-08-03] MEDS ORDERED: Ondansetron ODT 4 MG TAB SL PRN (15:12)
[2018-08-03 16:00] VITALS: BMI 38.3
[2018-08-03 16:28] LABS: Troponin I 0.011 ng/mL (< 0.028)
[2018-08-03 18:25] LABS: Troponin I 0.018 ng/mL (< 0.028)
[2018-08-03] MEDS ORDERED: Atorvastatin Calcium 20 MG TAB PO SCH (21:00)
[2018-08-03] MEDS ORDERED: Finasteride 5 MG TAB PO SCH (21:00)
[2018-08-03] MEDS ORDERED: Aspirin 81 mg Enteric Coated Tablet PO SCH (21:00)
--- NOTE | 2018-08-03 22:02 | HP ---
DATE OF ADMISSION: 08/03/2018 PRIMARY CARE PHYSICIAN: Dr. Jose Ramon Martinez. CHIEF COMPLAINT: Chest tightness, chest pain. HISTORY OF PRESENT ILLNESS: This is a 73-year-old male patient of Dr. Martinez's who was hav ing bilateral substernal chest tightness today while working on a car and he noticed this has been go ing on for last 3 or 4 days, a little bit worse with exertion and then he has noted last night and to day that was having some achiness going down into his left arm and a little bit into his right arm as well, so he decided to come in and get that checked out. He does have a history of mild coronary ar mele disease and he sees Dr. Gonzales as his neon sign maker. He had a catheterization 2 years ago show ed mild coronary artery disease at that time. He denies any nausea, denies any diaphoresis. PAST MEDICAL HISTORY: Positive for B-cell mantle cell type lymphoma that he has gone through six rou nds of chemo starting last September and he has a port that was placed and he is going to start chemo again with Dr. Gallegos starting next week. Recent MRI showed two small possibly unrelated spots on e ach lung with his latest PET scan was negative. He also has mild coronary artery disease. He has hy pertension, mixed hyperlipidemia, GERD, history of prostate infections. PAST SURGICAL HISTORY: He had a vasectomy in 1970s. Remotely, he has had a cholecystectomy and hemo rrhoidectomy in 2010 and 2014. He had had colonoscopies, most latest one showed a small polyp that w as resected was negative. In 2013, he had a cystoscopy and a bladder wash done by Dr. Thomason sh owing mildly obstructing prostate. In 2016, he had cardiac catheterization done by Dr. Gonzales show ing mild coronary artery disease in a couple of vessels, but no intervention was made. ALLERGIES: He has no known drug allergies. CURRENT MEDICATIONS: Currently, he is on amlodipine 5 mg daily, losartan 50 mg daily, metoprolol 50 mg extended release twice a day. He is on Lipitor 20 mg a day, Dexilant 60 mg once a day, 81 mg aspi rin once a day, Flomax 0.4 mg once a day, and p.r.n. Xanax 0.5 mg that was started after the diagnosi s of lymphoma and he does not take that regularly. He is also on Krill oil 1000 mg twice a day. FAMILY HISTORY: Both parents are and is noncontributory. 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 He is and has 2 children. He is a former smoker, was smokin g, has [id number] history, quit in 1979, he has occasional social alcohol intake. All immunization s are up to date. REVIEW OF SYSTEMS: Denies any visual changes, no headache, no troubles chewing or swallowing. Has n o true chest pain, just the chest tightness that is more substernal and coming around bilaterally laurie und the upper abdomen and lower ribcage. Also feels no palpitations, tachycardia. Denies any diapho resis. Denies any shortness of breath, any cough, any hemoptysis. Denies any nausea or vomiting, de nies any changes in bowel or bladder habits. No hematochezia or melena or bright red blood per rectu m. Denies any dysuria or hematuria. Has had some dysesthesias in his upper extremities and they are not maneuverable or manipulated by any actions that he has found, he can induce them or reduced them . He has seen them happened many times at night while he is trying to sleep. His hands will go numb and he can feel it coming down in his arms. He denies paresis. Denies any suicidal or homicidal id eations. Denies any auditory or visual hallucinations. Denies any weakness. PHYSICAL EXAMINATION: VITAL SIGNS: He is afebrile with a temperature of 97.7, pulse 53, respirations 20, O2 sats 97% on ro om air, BP is 148/70. HEENT: Cranium is atraumatic, normocephalic. Pupils are equal, round, and reactive to light and acc ommodation. Extraocular movements are intact. His sclera is anicteric. Mucosal membranes are moist . NECK: Supple, full range of motion. No bruits, no thyromegaly, no lymphadenopathy is palpated. HEART: S1, S2, with no rubs, murmurs, or gallops. LUNGS: Clear to auscultation bilaterally with no rales, rhonchi, or wheezes. CHEST: Shows no tenderness to palpation. ABDOMEN: Soft, nontender, nondistended, slightly obese. Bowel sounds are hypoactive. No hepatosple nomegaly. GENITOURINARY: Deferred. EXTREMITIES: No lymph nodes palpated in the groin or in the lower extremities. Good palpable pulses in all four extremities. No cyanosis, clubbing, or edema is noted. NEUROLOGIC: He is alert and oriented x4. Cranial nerves II through XII are equal and symmetrical gr ossly bilaterally. He has no motor or sensory deficits and none are elicited by neck movement. LABORATORY DATA AND X-RAY FINDINGS: His white count is normal at 5.7, hemoglobin is 13.5, hematocrit 39.8, platelet count of 330,000. Chemistries showed sodium 136, potassium 4.2, chloride 106, bicarb zay 23, BUN is 22, creatinine is 1.04, GFR is 70, glucose at 103, calcium 10.5. Creatine kinase 30 6. CK-MB is 5.0. Troponin initially was undetectable and then second one was barely detectable at 0 .011. Beta natriuretic peptide is normal at 45. Lipase normal at 28. ASSESSMENT: Chest pain. PLAN: Plan is to hold in for observation and rule out any type of cardiac etiology. The other possi bility is his lymphoma could have some etiology to this symptoms that he is experiencing and so we pu t in ruled out for coronary artery episode.
[2018-08-04 08:05] VITALS: BP 141/62; TEMP 97.6
[2018-08-04] MEDS ORDERED: Ubidecarenone 50 MG CAP PO SCH (09:00)
[2018-08-04] MEDS ORDERED: Tamsulosin HCl 0.4 MG CAP PO SCH (09:00)
[2018-08-04] MEDS ORDERED: Amlodipine 5 MG TAB PO SCH (09:00)
[2018-08-04] MEDS ORDERED: Losartan 25 MG TAB PO SCH (09:00)
--- NOTE | 2018-08-04 16:10 | DIS ---
DATE OF ADMISSION: 08/03/2018 DATE OF DISCHARGE: 08/04/2018 It was an observation admission. PRIMARY CARE PHYSICIAN: Jose Ramon Martinez M.D. ADMITTING DIAGNOSIS: Chest pain. DISCHARGE DIAGNOSIS: Chest pain, but noncardiac etiology. HOSPITAL COURSE: This is a 73-year-old male, patient of Dr. Martinez'garland, who came in with squ eezing chest discomfort and was put in overnight for chest pain rule out. He has seen Dr. Saleem mo in the past and was found to have a nonsignificant coronary artery disease years ago. He has a lymphoma that he is following with Dr. Gallegos. He has been doing previous rounds of chemo and is g oing to see Dr. Gallegos again starting here in a week or so for the next rounds of chemo. Overnight, his troponins were initially undetectable at less than 0.01 and then they came up to 0.01 for the ne xt two and never really changed. He had no further episodes of the discomfort and his EKG showed no changes or indications of ischemia. So, the plan is to discharge him to home. He already has a sche duled followup with Dr. Gonzales as well as with Dr. Gallegos. We will need him to follow up with Dr. Martinez next week to verify that this is all staying away. I had long discussions with him and his w felix regarding the benefits of a low carbohydrates. We will plan to help him with weight loss and he was very motivated and willing to pursue that.
== END 2018-08-04 12:00 | disposition home or self-care (01) ==
LOC: ERS 11:41 → 2SW 13:52
PROVIDERS: ADMIT Family Medicine; ATTEND Family Medicine
DX: R07.89 Other chest pain (principal); C83.10 Mantle cell lymphoma, unspecified site; I10 Essential (primary) hypertension; E78.2 Mixed hyperlipidemia; K21.9 Gastro-esophageal reflux disease without esophagitis; I25.10 Atherosclerotic heart disease of native coronary artery without angina pectoris; Z79.82 Long term (current) use of aspirin; Z79.899 Other long term (current) drug therapy; Z87.891 Personal history of nicotine dependence
CPT/HCPCS: 71045; 80053; 82550; 82553; 83690; 83880; 84484 ×2; 85025; 93005; 99285; G0378 ×2; 36415

== ENCOUNTER 2018-08-08 11:24 | Inpatient (IN) | payer MEDICARE, BC ==
[2018-08-08 12:18] LABS: #Eosinphils 0.2 thou/uL (0.0-0.7); #Lymphocytes 0.8 thou/uL (1.20-3.40); #Monocytes 0.5 thou/uL (0.11-0.59); #Neutrophils 3.8 thou/uL (1.40-6.50); %Basophils 0.5 % (0.0-1.0); %Eosinophils 3.8 % (0.0-10.0); %Lymphocytes 14.9 % (21.0-51.0); %Monocytes 9.4 % (0.0-10.0); %Neutrophils 71.4 % (42.0-75.0); Hemoglobin 12.5 g/dL (14.0-18.0); Mean Corpuscular HGB CONC 33.6 g/dL (32.0-36.0); Mean Corpuscular Hemoglobin 31.1 pg (27.0-31.0); Mean Corpuscular Volume 92.7 fL (78.0-98.0); Mean Platelet Volume 7.2 fL (7.4-10.4); Platelet Count 281 thou/uL (130-400); RBC Distribution Width 12.4 % (11.5-14.5); Red Blood Cell (RBC) Count 4.01 mill/uL (4.70-6.10); White Blood Cell (WBC) Count 5.3 thou/uL (4.8-10.8)
--- NOTE | 2018-08-08 12:20 | RAD ---
CHEST 1 VIEW: Date: 08/08/18 HISTORY: Chest pain. COMPARISON: 08/03/18. FINDINGS: Port catheter tip is in similar position. Heart size is similar. No focal confluent air space consoli dation, pneumothorax, or effusion. No acute osseous abnormality. IMPRESSION: No acute intrathoracic abnormality. POS: [facility]
[2018-08-08 12:35] LABS: Troponin I Less than 0.010 ng/mL (< 0.028)
[2018-08-08 12:36] LABS: ALT (SGPT) 18 U/L (8-55); AST (SGOT) 18 U/L (5-34); Alkaline Phosphatase 72 U/L (40-150); Anion Gap 11 mmol/L (10-20); BUN (Urea Nitrogen) 16 mg/dL (8.4-25.7); Bilirubin, Total 0.5 mg/dL (0.2-1.2); CK (CPK) 182 U/L (30-200); Calc. Creatinine Clearance 0 mL/min (70-130); Calcium 9.8 mg/dL (7.8-10.44); Carbon Dioxide 21 mmol/L (23-31); Chloride 109 mmol/L (98-107); Estimated GFR-MDRD 76; Glucose 101 mg/dL (83-110); Lipase 28 U/L (8-78); Potassium 4.3 mmol/L (3.5-5.1); Sodium 137 mmol/L (136-145)
[2018-08-08 15:14] LABS: Troponin I 0.015 ng/mL (< 0.028)
[2018-08-08] MEDS ORDERED: Ondansetron PF 4 MG/2 ML Vial IVP PRN (17:33)
[2018-08-08] MEDS ORDERED: Ondansetron ODT 4 MG TAB SL PRN (17:33)
[2018-08-08] MEDS ORDERED: Acetaminophen 325 MG TAB PO PRN (17:33)
[2018-08-08 17:39] VITALS: BMI 38.6
[2018-08-08 18:29] LABS: Troponin I 0.021 ng/mL (< 0.028)
[2018-08-08] MEDS: Atorvastatin Calcium 20 MG TAB PO SCH ×2 (21:41→21:43)
[2018-08-08] MEDS: Metoprolol Tartrate 50 MG TAB PO SCH (21:41)
--- NOTE | 2018-08-09 03:33 | HP ---
PRIMARY CARE PHYSICIAN: Jose Ramon Martinez M.D. CHIEF COMPLAINT: Chest pain. HISTORY OF PRESENT ILLNESS: This is a 73-year-old male who was admitted by me to the [facility] last weekend for chest pain. He was ruled out for having an acute coronary syndrome. His labs w ere negative and he was sent home and he had followups scheduled with Dr. Martinez this week. He had n o further pain until today. He called Dr. Gonzales's office and spoke to Dr. Martinez as well and they agree that they needed to do the stress test and the most efficient way to do that was to go ahead a nd admit him just in case, so he was told to go the emergency room and get start his admission proces s. The pain comes on the lower chest bilaterally and feels like a squeezing also, gets some strange irritation and pain going down both arms. Denies any nausea at the time. From the history on this, he had a catheterization about 2 years ago, which showed mild coronary artery disease. PAST MEDICAL HISTORY: Positive for B cell mantle cell type lymphoma. He sees Dr. Gallegos, Oncology for this. Recent MRI showed 2 small spots, 1 on each lung, but the latest PET scan was negative. He also has mild coronary artery disease. He has hypertension, mixed hyperlipidemia, GERD, and history of prostate infections. PAST SURGICAL HISTORY: He had a vasectomy in the 1970s. He had a cholecystectomy in 2010 and hemorr hoidectomy in 2014. He had had a colonoscopy that had one small polyp negative. In 2013, he had a cystoscopy and a bladder wash by that showed mildly obstructing prostate. In 2015, he h ad a cardiac catheterization with Dr. Gonzales showing mild coronary artery disease. No intervention s at that time were necessary. ALLERGIES: Has no known drug allergies. CURRENT MEDICATIONS: He is on 81 mg aspirin daily, amlodipine 5 mg daily, losartan 50 mg daily, meto prolol 50 mg twice a day, Lipitor 20 mg daily, Dexilant 60 mg daily, Flomax 0.4 mg daily, and Xanax 0 .5 mg p.r.n., also he takes Krill oil 1000 mg twice a day. FAMILY HISTORY: Noncontributory. Both parents are . No known diseases that he is aware of. 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 He is , has two children. He is a former smoker, has a 20 -pack-year history, but he quit in 1979; has occasional social alcohol intake. REVIEW OF SYSTEMS: He denies any visual changes, headache, trouble chewing or swallowing. Has no cr ushing substernal chest pain, but he has the chest tightness around each side of the sternum and the lower ribcage. He has no palpitations or diaphoresis. Does not feel his heart is tachycardic. Nelson es any shortness of breath or any cough or any hemoptysis. Denies any nausea and vomiting. Denies a ny changes in bowel or bladder habits. No hematochezia, melena, no bright red blood per rectum. Den ies any dysuria or hematuria. Denies any seizure activity. He does have some dysesthesias in the up per extremities, but he cannot necessarily affect the sensation that he is getting either inducing or relieving him. He denies hemiparesis. Denies any suicidal or homicidal ideations. Denies any adebayo tory or visual hallucinations. Denies any weakness. PHYSICAL EXAMINATION: VITAL SIGNS: Today, afebrile 97.2, pulse 51, respiration is 17, satting 98% on room air and BP in e room was 146/77. GENERAL: He is lying in bed in no acute distress, comfortable and communicative easily, answering al l questions, very cooperative. HEENT: Normocephalic, atraumatic cranium. Pupils are equal, round, and reactive to light and accomm odations. Extraocular movements are intact. Mucous membranes are moist. Anicteric sclerae. NECK: Supple, no JVD, no bruits, no thyromegaly, no lymphadenopathy. LUNGS: Clear to auscultation bilaterally with no rales, rhonchi or wheezes. HEART: S1, S2, with no rubs, murmurs, or gallops. ABDOMEN: Obese, soft, nontender, no organomegaly is palpated or appreciated. Bowel sounds are hypoa ctive. GENITOURINARY: Deferred. EXTREMITIES: Show good palpable pulses in all four extremities. No cyanosis, clubbing, or edema. NEUROLOGIC: Grossly intact, alert and oriented, no acute distress. Cranial nerves II-XII are equal and symmetrical. LABORATORY AND X-RAY FINDINGS: His white count normal at 5.3, hemoglobin is 12.5, hematocrit 37.2, p latelet counts 281,000. D-dimer is 0.37. Chemistries: Sodium was 137, potassium is 4.3, chloride i s 109, bicarbonate is 21, BUN 16, creatinine 0.97, glucose at 101. AST and ALT are both 18 and withi n normal limits. Creatinine kinase is 182. His CK-MB is 3.0. Troponin, the first one is undetectab le; the second one was 0.015. The third one is 0.021. Lipase normal at 28. He had a chest x-ray do ne in the ER, which is unremarkable. No masses or consolidations. ASSESSMENT: Recurrent chest pain. PLAN: To admit, observe overnight and plan stress test in the morning and proceed from there per Dr. Gonzales's recommendations.
--- NOTE | 2018-08-09 07:23 | PRG ---
DATE OF SERVICE: 08/09/2018 SUBJECTIVE: No complaints of chest pain this morning. The patient states he has occasional bouts of substernal, pressure-like chest pain radiating to both shoulders and left upper extremity. He state s that this has been present for months. OBJECTIVE: VITAL SIGNS: Temperature 97.3, pulse 60, respirations 18, pulse ox 97, blood pressure 123/57. HEART: Regular rate and rhythm. LUNGS: Clear. ABDOMEN: Soft. EXTREMITIES: No edema. LABORATORY: Troponin 0.010, 0.015, 0.021. ASSESSMENT: 1. Chest pain, rule out myocardial infarction. 2. Coronary artery disease. 3. Mantle cell lymphoma followed by Dr. Gallegos. 4. Morbid obesity. 5. Hypertension. 6. Hyperlipidemia. 7. Gastroesophageal reflux disease. PLAN: 1. Cardiolite stress test by Dr. Gonzales this morning. 2. If the stress test is negative, consider consulting Dr. Leyva for repeat EGD. 3. Dr. Madrid will be covering this weekend.
[2018-08-09] MEDS ORDERED: Regadenoson 0.4 MG/5 ML SYRINGE ONE (16:04)
[2018-08-09] MEDS: Metoprolol Tartrate 50 MG TAB PO SCH ×2 (16:38→21:20)
[2018-08-09] MEDS: Losartan 25 MG TAB PO SCH (16:39)
[2018-08-09] MEDS: Tamsulosin HCl 0.4 MG CAP PO SCH (16:39)
[2018-08-09] MEDS: Amlodipine 5 MG TAB PO SCH (16:39)
--- NOTE | 2018-08-09 19:06 | NM ---
NUCLEAR MEDICINE CARDIAC SPECT WITH EF AND WALL MOTION: HISTORY: A 73-year-old male with a history of chest pain and coronary artery disease and a history of catheter ization, hypertension, and dyslipidemia. TECHNIQUE: A Lexiscan sestamibi study is performed. The patient was injected with 27.0 millicuries of technetium 99m sestamibi intravenously for stress i mages, and the patient was injected with 10.6 millicuries of technetium 99m sestamibi intravenously f or rest images. FINDINGS: Multiple SPECT images in the short axis, vertical long axis, and horizontal long axis demonstrate no scan evidence for infarct or ischemia. TID: 1.01 LHR: 1.20 EDV: 85 Ml EJECTION FRACTION: 65% MYOCARDIAL PERFUSION WALL MOTION: Wall motion is normal. IMPRESSION: 1. Normal stress and rest myocardial scan with ejection fraction and wall motion. 2. No scan evidence for infarct or ischemia. POS: [facility]
[2018-08-09] MEDS: Atorvastatin Calcium 20 MG TAB PO SCH (21:06)
--- NOTE | 2018-08-10 01:18 | CON ---
DATE OF CONSULTATION: 08/09/2018 HISTORY: He is a 73-year-old white male admitted with chest and arm pain. In 12/2005, he underwent cardiac catheterization which revealed normal coronary arteries. In 09/2016, he was admitted with chest discomfort and lightheadedness. He had a normal adenosine Cardiolite test a year before and it was felt that he should be reevaluated. He underwent repeat catheterization , which revealed ejection fraction of 50%-55% with 20% left main, 20% proximal LAD, 20% mid LAD, 20% mid RCA, and 20% distal RCA. He has been followed in the office since that time. His cholesterol has been aggressively treated. He states he was placed on Dexilant for his chest discomfort, which seemed to help until the past 2 weeks and he has started to have episodes of chest pressure. This did not really seem to bother him until he would have sharp pain going down both arms. He came to the emergency room for evaluation of this on 08/03/2018. Cardiac enzymes were negative. He was sent home the next day. He continued to have chest discomfort but started to have more arm pain and so came back to the hospital yesterday. PAST MEDICAL HISTORY: B-cell mantle-type lymphoma, mild coronary artery disease , hypertension, hyperlipidemia, GERD, history of prostatitis. OPERATIONS: Vasectomy, cholecystectomy, and hemorrhoidectomy. MEDICATIONS: Aspirin 81 daily, atorvastatin 20 mg at bedtime, Dexilant 60 daily , Proscar 5 mg daily, Flomax 0.4 mg daily, losartan 50 daily, and metoprolol 50 mg b.i.d. ALLERGIES: None. FAMILY HISTORY: Unremarkable. SOCIAL HISTORY: Smoked in the past but quit in 1979. He occasionally drinks alcohol. REVIEW OF SYSTEMS: A 12-point review of systems, otherwise unremarkable. PHYSICAL EXAMINATION: VITAL SIGNS: 138/64, pulse of 54. HEENT: PERRL with bilateral ear creases. CHEST: Clear. CARDIAC: S1, S2 normal without any S3, S4, or murmurs. ABDOMEN: Normal bowel sounds, without tenderness, organomegaly. The abdomen is obese. EXTREMITIES: Revealed no clubbing, cyanosis, or edema. NEUROLOGIC: Grossly intact. SKIN: Warm and dry. LABORATORY DATA: EKG revealed sinus bradycardia, but otherwise unremarkable EKG. Cardiac enzymes are normal. Hemoglobin 12.5, hematocrit 37.2, white count 5300, platelets 281,000. Sodium 137, potassium 4.3, chloride 109, carbon dioxide 21, BUN 16, creatinine 0.97. On 08/02/2018, cholesterol is 146, triglycerides 135, HDL 39, LDL 80. IMPRESSION: 1. Atypical chest and arm pain. 2. Minimal coronary artery disease on catheterization in 09/2016. Cardiolite at this time is normal. 3. Hypertension. 4. Hyperlipidemia. 5. Former smoker. 6. History of lymphoma. 7. Obesity. PLAN: No further cardiac evaluation is warranted with very minimal disease less than 2 years ago at catheterization. He has atypical chest and arm pain and now with normal Cardiolite. Some of his bilateral arm pain sounds as if it may be related to a cervical radiculopathy. Since no further cardiac evaluation is needed, I will follow from a distance. KAYLENE
[2018-08-10 08:42] VITALS: BP 117/56; TEMP 97.9
[2018-08-10] MEDS: Metoprolol Tartrate 50 MG TAB PO SCH (08:48)
[2018-08-10] MEDS: Amlodipine 5 MG TAB PO SCH (08:48)
[2018-08-10] MEDS: Losartan 25 MG TAB PO SCH (08:48)
[2018-08-10] MEDS: Tamsulosin HCl 0.4 MG CAP PO SCH (08:49)
--- NOTE | 2018-08-10 09:26 | DIS ---
DATE OF ADMISSION: 08/08/2018 DATE OF DISCHARGE: 08/10/2018 PRIMARY CARE PHYSICIAN: Jose Ramon Martinez M.D. ADMISSION DIAGNOSIS: Chest pain, rule out unstable angina. DISCHARGE DIAGNOSES: Atypical chest pain, neck pain, possible radiculopathy, gastroesophageal reflux disease, B cell mantle lymphoma, mild coronary artery disease, hypertension, hyperlipidemia, BPH. PROCEDURES: Rule out MN protocol, telemetry monitoring, nuclear stress test. CONSULTATION: Dr. Gonzales for Cardiology. HOSPITAL COURSE: This is a 73-year-old gentleman, patient of Dr. Jose Ramon Martinez with above past medical history presented to the emergency department with persistent chest pains. Patient states that he has been having on and off chest pains for years, but this one was a little bit different, feeling like a squeezing and radiation to his arms. He presented to the emergency department. He eventually ruled out for an MN with negative cardiac enzymes. He underwent a stress test which showed no signs of ischemia and he does have known mild coronary disease from a cardiac catheterization 2 years ago. His hospitalization was uneventful. He had no further pains. He has had episodes of gastroesophageal reflux in the past and this seemed to have been worsening lately in spite of his proton pump inhibitor. DISCHARGE PHYSICAL EXAMINATION: VITAL SIGNS: Temperature 97.8, pulse of 63, respirations 16, blood pressure 117 /56, pulse ox is 94%-98% on room air. GENERAL: He is awake and alert, in no acute distress. He is morbidly obese. NECK: Supple. HEART: Regular rate and rhythm. LUNGS: Clear bilaterally. ABDOMEN: Positive epigastric tenderness. EXTREMITIES: No clubbing, cyanosis or edema. DISCHARGE LABORATORY DATA AND IMAGING DATA: Cardiac enzymes were negative x3. Sodium 137, potassium 4.3, chloride 109, CO2 of 21, BUN and creatinine 16 and 0.97. D-dimer was normal. White blood cell count 5.3 thousand, hemoglobin and hematocrit 12.5 and 37.2, platelets of 281. Again a nuclear stress test revealed normal stress and rest scan, ejection fraction of 65%, normal wall motion. No evidence of infarct or ischemia. Chest x-ray showed no active disease. DISCHARGE MEDICATIONS: Amlodipine 5 mg daily, aspirin 81 mg daily, Lipitor 20 mg daily, losartan 50 mg daily, metoprolol 50 mg b.i.d., Flomax 0.4 mg daily, Dexilant 60 mg daily, Proscar 5 mg daily, Zantac 150 mg daily. FOLLOWUP INSTRUCTIONS: Patient to follow up with Dr. Martinez in 1-2 weeks to initiate work up for his neck and arm pain. MTDD
--- NOTE | 2018-08-12 13:34 | STRESS ---
Acquisition Time: 2018-08-09 12:31:54 Total Exercise Time: 00:01:00 Test Indications: CHEST PAIN Medications: Protocol: LEXISCAN Max HR: 088 BPM 60% of Pred: 146 BPM Max BP: 138/052 mmHG Max Work Load: 1.0 METS RESTING ECG: NORMAL SINUS RHYTHM AT 46 BPM WITH RARE PAC SYMPTOMS: DYSPNEA NORMAL BP RESPONSE ECTOPY: NONE ECG STRESS: NO SIGNIFICANT CHANGES INTERPRETATION: AWAIT NUCLEAR IMAGES FOR DEFINITIVE DIAGNOSIS Confirmed by AJAY OBANDO ([id number]), sports editor SAM MARIEE ([id number]) on 08/12/2018 1:34:32 PM Referred By: MD William SCANLON Confirmed By:AJAY OBANDO
== END 2018-08-10 10:54 | disposition home or self-care (01) | DRG 74 ==
LOC: ERS 11:24 → OBSVTOIN 14:00 → ERHOLD 14:00 → 2NO 17:00
PROVIDERS: ADMIT Family Medicine; ATTEND Family Medicine
DX: M54.10 Radiculopathy, site unspecified (principal); C83.10 Mantle cell lymphoma, unspecified site; K21.9 Gastro-esophageal reflux disease without esophagitis; I25.10 Atherosclerotic heart disease of native coronary artery without angina pectoris; I10 Essential (primary) hypertension; E78.5 Hyperlipidemia, unspecified; N40.0 Benign prostatic hyperplasia without lower urinary tract symptoms; Z87.891 Personal history of nicotine dependence; E66.01 Morbid (severe) obesity due to excess calories; Z68.38 Body mass index [BMI] 38.0-38.9, adult
CPT/HCPCS: 36415; 71045; 78452; 80053; 82553; 83690; 84484; 85025; 85379; 93005; 93017; A9500; J2785

== ENCOUNTER 2018-11-21 08:22 | Outpatient (CLI) | payer MEDICARE, BC ==
--- NOTE | 2018-11-21 12:05 | PET ---
RADIONUCLIDE PET SCAN WITH CT ATTENUATION CORRECTION: Date: 11/21/18 HISTORY: Mantle cell non-Hodgkin's lymphoma. COMPARISON: PET scan from 01/17/[address] chest and abdomen exams. FINDINGS: Physiologic uptake of radiotracer throughout the enteric system and along each urinary tract. No hype rmetabolic lymph nodes are apparent. At the lateral aspect of the right 7th rib, an area of increased uptake maximum SUV 4.4 correlates wi th a focus of callus formation and periosteal reaction, having the appearance of a healing fracture. A similar lesion at the anterolateral aspect of the left fifth rib shows a maximum SUV of 2.8. No other abnormal areas of hypermetabolic activity are apparent. The ill-defined parenchymal nodular opacity at the posterior aspect of the right lower lobe is apparent on the nondiagnostic CT attenuati on correction images. No hypermetabolic activity at this level. IMPRESSION: 1. Bilateral rib abnormalities have the appearance of healing rib fractures, as detailed above. Neop lasm is very unlikely. 2. Deauville score of 1. POS: [facility]
== END 2018-11-21 08:23 | disposition home or self-care (01) ==
LOC: PET 08:22
PROVIDERS: ATTEND Internal Medicine Hematology & Oncology
DX: C85.10 Unspecified B-cell lymphoma, unspecified site (principal)
CPT/HCPCS: 78815; A9552

== ENCOUNTER 2018-12-12 08:58 | Outpatient (CLI) | payer MEDICARE, BC | END 2018-12-12 08:59 | disposition home or self-care (01) | LOC: CTENTCT 08:58 | PROVIDERS: ATTEND Otolaryngology Plastic Surgery within the Head & Neck | DX: J32.8 Other chronic sinusitis (principal) | CPT/HCPCS: 70486 ==

== ENCOUNTER 2019-07-08 13:30 | Outpatient (CLI) | payer MEDICARE, BC ==
--- NOTE | 2019-07-08 15:12 | PET ---
EXAM: PET CT apex of skull to mid thigh COMPARISON: 11/21/2018 HISTORY: Mantle cell lymphoma TECHNIQUE: A PET/CT was performed from the apex of the skull to the mid thigh after administration of 11.9 millicuries of F-18 FDG. Evaluation was performed on a [employer] workstation. FINDINGS: NECK: No areas of hypermetabolic activity CHEST: There is a hypermetabolic subcarinal lymph node measuring 3.0 cm in size with a max SUV value of 3.4. This is slightly less than the background activity of liver which is 3.9. No other areas of hypermetabolic activity are seen within the chest. ABDOMEN/PELVIS: No areas of hypermetabolic activity SKELETON: No areas of hypermetabolic activity CT images used for attenuation correction show a left subclavian Mediport with its tip in the superio r vena cava.. IMPRESSION: Abnormal uptake within a subcarinal lymph node. This has a Deauville score of 3.
== END 2019-07-08 13:31 | disposition home or self-care (01) ==
LOC: PET 13:30
PROVIDERS: ATTEND Internal Medicine Hematology & Oncology
DX: C83.18 Mantle cell lymphoma, lymph nodes of multiple sites (principal)
CPT/HCPCS: 78815; A9552

== ENCOUNTER 2019-10-16 07:52 | Outpatient (CLI) | payer MEDICARE, BC ==
[2019-10-16 10:33] LABS: #Eosinphils 0.2 thou/uL (0.0-0.7); #Lymphocytes 0.8 thou/uL (1.20-3.40); #Monocytes 0.6 thou/uL (0.11-0.59); #Neutrophils 4.4 thou/uL (1.40-6.50); %Eosinophils 4.1 % (0.0-10.0); %Lymphocytes 12.7 % (21.0-51.0); %Monocytes 9.7 % (0.0-10.0); %Neutrophils 73.5 % (42.0-75.0); Mean Corpuscular HGB CONC 33.4 g/dL (32.0-36.0); Mean Corpuscular Hemoglobin 31.1 pg (27.0-31.0); Mean Corpuscular Volume 93.1 fL (78.0-98.0); Mean Platelet Volume 7.7 fL (7.4-10.4); Platelet Count 285 thou/uL (130-400); Red Blood Cell (RBC) Count 4.19 mill/uL (4.70-6.10)
[2019-10-16 10:34] LABS: Anion Gap 12 mmol/L (10-20); BUN (Urea Nitrogen) 23 mg/dL (8.4-25.7); Calc. Creatinine Clearance 0 mL/min (70-130); Carbon Dioxide 22 mmol/L (23-31); Chloride 109 mmol/L (98-107); Estimated GFR-MDRD 68; Glucose 104 mg/dL (83-110); Potassium 4.5 mmol/L (3.5-5.1); Sodium 138 mmol/L (136-145)
[2019-10-16 10:35] LABS: Bacteria/HPF None Seen HPF (None Seen); Bilirubin Negative (Negative); Blood, Urine Negative (Negative); Clarity Clear (Clear); Glucose, Urine (Dipstick) Normal (Negative); Leukocyte Negative Leu/uL (Negative); Nitrite Negative (Negative); Protein, Urine (Dipstick) Negative (Neg-Trace); RBC/HPF 0-3 HPF (0-3); Squamous Epithelial 0-3 HPF (0-3); Urobilinogen Normal mg/dL (Less than 2); WBC/HPF 0-3 HPF (0-3)
[2019-10-16 10:42] LABS: INR-International Normal Ratio 0.9; Prothrombin Time 12.1 SEC (12.0-14.7)
--- NOTE | 2019-10-16 16:51 | EKG ---
Test Reason : Blood Pressure : / mmHG Vent. Rate : 055 BPM Atrial Rate : 055 BPM P-R Int : 196 ms QRS Dur : 098 ms QT Int : 412 ms P-R-T Axes : 037 062 049 degrees QTc Int : 394 ms Sinus bradycardia Otherwise normal ECG When compared with ECG of 08-AUG-2018 11:29, No significant change was found Confirmed by DR. Mami JEAN BAPTISTE ([id number]) on 10/16/2019 4:51:05 PM Referred By: SREEDHAR Confirmed By:DR. Mami JEAN BAPTISTE
== END 2019-10-16 07:53 | disposition home or self-care (01) ==
LOC: LABBT 07:52
PROVIDERS: ATTEND Orthopaedic Surgery
DX: Z01.818 Encounter for other preprocedural examination (principal); M17.12 Unilateral primary osteoarthritis, left knee
CPT/HCPCS: 80048; 81001; 85025; 85610; 87081; 93005; 93010

== ENCOUNTER 2019-10-28 07:28 | Day surgery (SDC) | payer MEDICARE, BC ==
[2019-10-16 08:49] VITALS: BMI 40.0
[2019-10-28] MEDS ORDERED: Sodium Chloride 0.9% 100 ML ONE (08:02)
[2019-10-28] MEDS ORDERED: Tranexamic Acid 1,000 MG/10 ML VIAL ONE (08:02)
[2019-10-28] MEDS ORDERED: Midazolam HCl 2 mg/2 ml Vial ONE (08:03)
[2019-10-28] MEDS ORDERED: Lidocaine 1% (PF) 30 ML VIAL ONE (08:03)
[2019-10-28] MEDS ORDERED: Fentanyl 100 MCG/2 ML VIAL ONE ×5 (08:03→11:39)
[2019-10-28] MEDS ORDERED: Ondansetron PF 4 MG/2 ML Vial IVP PRN ×2 (08:51→08:55)
[2019-10-28] MEDS ORDERED: Zolpidem Tartrate 5 MG TAB PO PRN ×2 (08:51→08:55)
[2019-10-28] MEDS ORDERED: traMADol HCl 50 MG TAB PO PRN ×2 (08:51)
[2019-10-28] MEDS ORDERED: Promethazine HCl 25 MG/ML VIAL IM PRN ×3 (08:51→11:08)
[2019-10-28] MEDS ORDERED: Ropivacaine HCl/PF 250 ML in Premix Bag 1 BAG NERVE BLCK SCH (08:51)
[2019-10-28] MEDS ORDERED: HYDROcodone/Acetaminophen 10/325 mg Tablet PO PRN (08:51)
[2019-10-28] MEDS ORDERED: Fentanyl 100 MCG/2 ML VIAL IV PRN (08:52)
[2019-10-28] MEDS ORDERED: Acetaminophen 325 MG TAB PO PRN ×2 (08:53→08:55)
[2019-10-28] MEDS ORDERED: diphenhydrAMINE 25 MG CAP PO PRN (08:55)
[2019-10-28] MEDS ORDERED: PROPOFOL 200 MG/20 ML VIAL ONE (09:40)
[2019-10-28] MEDS ORDERED: Ropivacaine 0.5% HCl/PF (150 MG/30 ML VIAL) ONE (09:40)
[2019-10-28] MEDS ORDERED: Ondansetron PF 4 MG/2 ML Vial ONE (09:40)
[2019-10-28] MEDS ORDERED: Lidocaine 1% PF 5 ML VIAL ONE (09:40)
[2019-10-28] MEDS ORDERED: Ropivacaine 0.2% HCl/PF (40 MG/20 ML VIAL) ONE (09:40)
[2019-10-28] MEDS ORDERED: Ondansetron HCl/PF 4 MG/2 ML Vial IVP PRN (11:08)
[2019-10-28] MEDS ORDERED: Promethazine HCl 25 MG/ML VIAL SLOW IVP PRN (11:08)
[2019-10-28] MEDS ORDERED: Morphine 4 MG/ML VIAL ONE (11:33)
[2019-10-28] MEDS ORDERED: Promethazine HCl 25 MG/ML VIAL ONE (11:39)
[2019-10-28] MEDS ORDERED: Meperidine HCl/PF 25 MG/ML VIAL ONE (11:41)
--- NOTE | 2019-10-28 11:46 | RAD ---
LEFT KNEE 2 VIEWS: HISTORY: Total knee postop. FINDINGS/IMPRESSION: There are recent postop changes of total knee arthroplasty in good position and alignment. Soft tiss ue air is present. POS: [facility]
[2019-10-28] MEDS ORDERED: HYDROcodone/Acetaminophen 5/325 mg Tablet ONE (11:58)
[2019-10-28] MEDS: Aspirin 81 mg Enteric Coated Tablet PO SCH ×2 (13:38→20:49)
[2019-10-28] MEDS: Sodium Chloride 0.9% 1,000 ML IV SCH ×2 (14:25→16:17)
[2019-10-28] MEDS: Ketorolac Tromethamine 30 MG/ML VIAL IVP SCH ×2 (14:26→16:15)
--- NOTE | 2019-10-28 17:17 | OP ---
DATE OF PROCEDURE: 10/28/2019 This is Geraldo Tobar PA-C dictating a report for Giovanny Carrion MD. PREOPERATIVE DIAGNOSIS: End-stage tricompartmental osteoarthritis, left knee. POSTOPERATIVE DIAGNOSIS: End-stage tricompartmental osteoarthritis, left knee. OPERATIVE PROCEDURE: Cemented cruciate-sparing computer-assisted navigated left total knee arthroplasty. OFFLINE EDITOR: Geraldo Tobar PA-C COMPONENTS USED: [employer] Triathlon size 6 cemented cruciate sparing femoral component with a size 6 primary cemented tibial base plate, 9-mm polyethylene fixed bearing insert, and a 38 patella button. 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 DRAINS: None. SPECIMENS: None. COMPLICATION: None. COUNTS: Correct. TOURNIQUET TIME: 65 minutes at 300 mmHg. ESTIMATED BLOOD LOSS: Less than 100. INPUT: 1000 mL of crystalloid. OUTPUT: None measured. No Hanson placed. INDICATION FOR SURGERY: Neil is a 74-year-old white male who has had progressive left knee pain and problem with standing and walking for the last 5 to 7 years. He has failed conservative management and elected to proceed with total knee arthroplasty as definitive treatment of his pain. PROCEDURE IN DETAIL: After informed consent was obtained in the preoperative holding area, the patient was taken to the operative suite where general anesthesia was induced. Once adequate level of general anesthesia was obtained, the patient was positioned and a well-padded tourniquet was placed around the left proximal thigh. The left lower extremity was then prepped and draped in the usual sterile fashion. Prior to exsanguination, a time-out was called and all members of the surgical team agreed upon site, surgeon, and patient. The extremity was then exsanguinated and the tourniquet was raised. A midline longitudinal incision was then made directly over the patella extending 2 fingerbreadths above the superior pole of the patella and 2 fingerbreadths inferior to the inferior patellar pole of the patella. Deeper subcutaneous layers were dissected sharply and local bleeding was controlled with Bovie electrocautery. A quad tendon longitudinal split was then made sharply and a median parapatellar arthrotomy was carried out both sharp and with Bovie electrocautery, carried down to 1 fingerbreadth medial to the tibial tubercle. The knee was then placed into flexion and the patella was everted nicely, and a copious fat pad ectomy was performed, allowing for greater exposure of the tibia. The computer-assisted distal femoral fiducial was then placed and pinned firmly, and the distal femoral cutting guide was pinned firmly into place. The oscillating saw was then used to remove the appropriate amount of bone. The 4-in-1 cutting block was then placed on the distal femur and the oscillating saw was used to remove the appropriate amount of bone off the anterior, posterior, and chamfer cuts. After completion of bone cuts, the anterior cruciate ligament was resected sharply and the posterior cruciate ligament retractor was placed and the tibia was subluxed for better exposure. Partial meniscectomies were carried out, and the tibial computer-assisted fiducial was pinned, and the cutting guide was placed. Oscillating saw was then used to remove the bone, with Hohmann retractors used to take care and protect the collateral ligaments. After the tibial resection was performed, a laminar drain tiler was placed in between the freshened bone cuts. The knee placed at 90 degrees and further bilateral meniscectomies were carried out, and the curved osteotome and curettage were used to remove any excess bone spurs in the posterior compartment. The trial femoral component, tibial baseplate were placed with the appropriate polyethylene trial insert with an appropriate polyethylene spacer and patellar button. The knee was taken through full range of motion with flexion and extension from 0 to 90 degrees and patellar broach squarely in the trochlea without any squinting or subluxation noted. The knee was also stable to varus and valgus stressing at 0, 15, 45, and 90 degrees of flexion. The drawer was negative. All trial components were then removed and the keel punch was used to provide the appropriate defect in the tibia with a mallet. The freshened bone cuts were copiously irrigated with pulsatile lavage of about 1.5 L to remove all excess debris. The freshened bone cuts were then dried with suction and lap sponge. The knee was placed in flexion and retractors were placed to provide access to all bone cuts. Tobramycin-impregnated methyl methacrylate cement was then placed on the freshened bone cuts and implants which were malleted firmly into place. Curettage and Charlo elevators were used to remove any excess bone cement. The knee was placed into full extension and the patellar button was placed under compression, and the cement was allowed to cure. Once completed, the components were again taken through full range of motion and copious irrigation of the knee was carried out with another liter of normal saline. All components were inspected fully with full range of motion and varus and valgus stressing. There was no laxity noted and full extension was observed clinically. Primary closure was accomplished with #2 interrupted Vicryl stitch of the arthrotomy defect. This was oversewn with a #2 running Quill barbed stitch. The subcutaneous layer was then closed with a running 0 barbed Monocryl stitch and skin closure accomplished with a running subcuticular 3-0 Monocryl barbed Quill stitch and augmented with cement on the skin. Tourniquet was lowered. Good spontaneous return of distal pulses was noted clinically and a sterile dressing was applied to the incision. The procedure was terminated without any complications. The patient was awakened in the operative suite and taken to the recovery room in stable condition. Job ID: [id number]
[2019-10-28] MEDS: CEFAZOLIN 2 GM in Premix Bag 1 BAG IVPB SCH (17:42)
[2019-10-28] MEDS: HYDROcodone/Acetaminophen 10/325 mg Tablet PO PRN ×2 (17:43→21:54)
[2019-10-28] MEDS: Atorvastatin Calcium 40 MG TAB PO SCH (20:49)
[2019-10-28] MEDS: Ferrous Gluconate 324 MG TAB PO SCH (20:49)
[2019-10-28] MEDS: Senokot S 8.6-50 MG TAB PO SCH (20:50)
[2019-10-28] MEDS ORDERED: Aspirin 81 mg Enteric Coated Tablet PO SCH (21:00)
[2019-10-29] MEDS: Ketorolac Tromethamine 30 MG/ML VIAL IVP SCH ×5 (00:09→23:30)
[2019-10-29] MEDS: CEFAZOLIN 2 GM in Premix Bag 1 BAG IVPB SCH (00:09)
[2019-10-29] MEDS: HYDROcodone/Acetaminophen 10/325 mg Tablet PO PRN ×5 (03:31→23:30)
[2019-10-29] MEDS: Sodium Chloride 0.9% 1,000 ML IV SCH ×2 (04:56→15:40)
[2019-10-29 05:56] LABS: Hemoglobin 11.1 g/dL (14.0-18.0); Mean Corpuscular HGB CONC 34.3 g/dL (32.0-36.0); Mean Corpuscular Hemoglobin 32.4 pg (27.0-31.0); Mean Corpuscular Volume 94.5 fL (78.0-98.0); Mean Platelet Volume 7.8 fL (7.4-10.4); Platelet Count 218 thou/uL (130-400); RBC Distribution Width 11.8 % (11.5-14.5); Red Blood Cell (RBC) Count 3.41 mill/uL (4.70-6.10); White Blood Cell (WBC) Count 9.7 thou/uL (4.8-10.8)
[2019-10-29] MEDS: Senokot S 8.6-50 MG TAB PO SCH ×2 (08:55→20:15)
[2019-10-29] MEDS: Ubidecarenone 50 MG CAP PO SCH (08:56)
[2019-10-29] MEDS: Tamsulosin HCl 0.4 MG CAP PO SCH (08:56)
[2019-10-29] MEDS: Aspirin 81 mg Enteric Coated Tablet PO SCH ×2 (08:56→20:15)
[2019-10-29] MEDS: Multivitamin W/ Minerals 1 TAB PO SCH (08:56)
[2019-10-29] MEDS: Losartan 25 MG TAB PO SCH (08:58)
[2019-10-29] MEDS: Ferrous Gluconate 324 MG TAB PO SCH ×2 (08:58→20:15)
[2019-10-29] MEDS: Finasteride 5 MG TAB PO SCH (08:58)
[2019-10-29] MEDS: Atorvastatin Calcium 40 MG TAB PO SCH (20:15)
--- NOTE | 2019-10-29 21:35 | PDOC.HOSPP ---
- Subjective Encounter Date: 10/29/19 Encounter Time: 13:30 Subjective: Patient seen and examined for med mngt. No CP/SOB. Pain controlled. No new complaints. No overnight events - Objective Vital Signs & Weight: Vital Signs (12 hours) Temp Pulse Resp BP Pulse Ox 10/29/19 20:03 98 10/29/19 20:00 98.2 F 66 18 151/61 H 98 10/29/19 15:34 99.2 F 69 20 124/80 95 Weight Admit Weight 295 lb Weight 295 lb I&O: 10/28/19 10/29/19 10/30/19 06:59 06:59 06:59 Intake Total 530 720 Output Total 1100 400 Balance -570 320 Result Diagrams: 10/29/19 05:30 Additional Labs: Laboratory Tests 10/16/19 09:30 Creatinine 1.06 EKG Reviewed by me: Yes (SB) Hospitalist ROS - Review of Systems Respiratory: denies: cough, dry, shortness of breath, hemoptysis, SOB with excertion, pleuritic pain, sputum, wheezing, other Cardiovascular: denies: chest pain, palpitations, orthopnea, paroxysmal noc. dyspnea, edema, light headedness, other Gastrointestinal: denies: nausea, vomiting, abdominal pain, diarrhea, constipation, melena, hematochezia, other - Medication Medications: Active Medications Generic Name Dose Route Start Last Admin Trade Name Freq PRN Reason Stop Dose Admin Hydrocodone Bitart/Acetaminophen 2 tab 10/28/19 08:51 10/29/19 18:44 Henry 10/325 PO 2 tab Q4H PRN Administration PAIN (4-6) Aspirin 81 mg 10/28/19 09:00 10/29/19 20:15 Ecotrin PO 81 mg BID SHOBHA Administration Atorvastatin Calcium 40 mg 10/28/19 21:00 10/29/19 20:15 Lipitor PO 40 mg HS SHOBHA Administration Coenzyme Q10 100 mg 10/29/19 09:00 10/29/19 08:56 Coenzyme Q10 PO 100 mg DAILY SHOBHA Administration Ferrous Gluconate 324 mg 10/28/19 21:00 10/29/19 20:15 Fergon PO 324 mg BID SHOBHA Administration Finasteride 5 mg 10/29/19 09:00 10/29/19 08:58 Proscar PO 5 mg DAILY SHOBHA Administration Ropivacaine 250 ml/ Device 250 mls @ 10 mls/hr 10/28/19 08:51 10/29/19 11:30 NERVE BLCK 10/31/19 08:50 250 mls INF SHOBHA Administration As Directed Sodium Chloride 1,000 mls @ 100 mls/hr 10/28/19 09:00 10/29/19 15:40 Normal Saline 0.9% IV Not Given .Q10H SHOBHA Iron/Minerals/Multivitamins 1 tab 10/29/19 09:00 10/29/19 08:56 Theragran M PO 1 tab DAILY SHOBHA Administration Ketorolac Tromethamine 15 mg 10/28/19 12:00 10/29/19 17:42 Toradol IVP 10/30/19 06:01 15 mg Q6HR SHOBHA Administration Losartan Potassium 50 mg 10/29/19 09:00 10/29/19 08:58 Cozaar PO 50 mg DAILY SHOBHA Administration Metoprolol Succinate 50 mg 10/28/19 21:00 10/29/19 20:15 Toprol Xl PO 50 mg BID SHOBHA Administration Pantoprazole Sodium 40 mg 10/29/19 09:00 10/29/19 08:57 Protonix PO 40 mg DAILY SHOBHA Administration Senna/Docusate Sodium 2 tab 10/28/19 21:00 10/29/19 20:15 Senokot S PO 2 tab BID SHOBHA Administration Tamsulosin HCl 0.4 mg 10/29/19 09:00 10/29/19 08:56 Flomax PO 0.4 mg DAILY SHOBHA Administration - Exam General Appearance: NAD Heart: RRR, no gallops Respiratory: no wheezes, no rales Gastrointestinal: non-tender, non-distended, normal bowel sounds Extremities: no cyanosis, no clubbing Psychiatric: normal affect, A&O x 3 Hosp A/P - Plan DVT proph w/SCDs HTN HLD Morbid Obesity LISSY on CPAP h/o B cell lymphoma PLAN: Cont CPAP HS Cont Losartan/Toprol XL Cont Statins Full code. DPAO - family Thank you for this consultation. Will follow.
[2019-10-30 00:16] VITALS: TEMP 98.5
[2019-10-30] MEDS: Sodium Chloride 0.9% 1,000 ML IV SCH ×2 (00:41→08:38)
[2019-10-30] MEDS: HYDROcodone/Acetaminophen 10/325 mg Tablet PO PRN ×3 (04:02→12:28)
[2019-10-30] MEDS: Ketorolac Tromethamine 30 MG/ML VIAL IVP SCH (05:31)
[2019-10-30 05:53] LABS: Hemoglobin 10.2 g/dL (14.0-18.0); Mean Corpuscular HGB CONC 32.8 g/dL (32.0-36.0); Mean Corpuscular Hemoglobin 31.1 pg (27.0-31.0); Mean Corpuscular Volume 94.7 fL (78.0-98.0); Mean Platelet Volume 7.8 fL (7.4-10.4); Platelet Count 192 thou/uL (130-400); Red Blood Cell (RBC) Count 3.28 mill/uL (4.70-6.10); White Blood Cell (WBC) Count 8.1 thou/uL (4.8-10.8)
[2019-10-30] MEDS: Aspirin 81 mg Enteric Coated Tablet PO SCH (08:30)
[2019-10-30] MEDS: Senokot S 8.6-50 MG TAB PO SCH (08:30)
[2019-10-30] MEDS: Ubidecarenone 50 MG CAP PO SCH (08:32)
[2019-10-30] MEDS: Multivitamin W/ Minerals 1 TAB PO SCH (08:33)
[2019-10-30] MEDS: Tamsulosin HCl 0.4 MG CAP PO SCH (08:33)
[2019-10-30] MEDS: Ferrous Gluconate 324 MG TAB PO SCH (08:33)
[2019-10-30] MEDS: Finasteride 5 MG TAB PO SCH (08:33)
[2019-10-30] MEDS: Losartan 25 MG TAB PO SCH (08:33)
[2019-10-30 11:58] VITALS: BP 145/48
--- NOTE | 2019-10-31 10:08 | DIS ---
DATE OF ADMISSION: 10/28/2019 DATE OF DISCHARGE: 10/30/2019 DISCHARGE DISPOSITION: Home. ADMISSION DIAGNOSIS: End-stage tricompartmental osteoarthritis of left knee. DISCHARGE DIAGNOSIS: End-stage tricompartmental osteoarthritis of left knee. OPERATIVE PROCEDURE: Left total knee arthroplasty. CONSULTANTS: [email or web address]. BRIEF CLINICAL HISTORY: The patient was admitted to [facility] and underwent the above elective procedure on the date of admission without intra-, taina-, or postoperative complication. The hospital course was unremarkable. At the time of discharge, the patient is afebrile, ambulatory without assistance utilizing a rolling walker in a full weightbearing fashion, tolerating a regular diet, and voiding without difficulty. The patient's incision is clean and closed without any erythema. DISCHARGE MEDICATIONS: Please see medication reconciliation form. We will be happy to see the patient on an as-needed basis between now and the patient's next scheduled appointment. CONDITION ON DISCHARGE: Stable. PROGNOSIS: Good. Job ID: [id number]
== END 2019-10-30 13:30 | disposition home or self-care (01) ==
LOC: SDC 07:28 → SURG A 13:06 → SDC 10-30 13:30
PROVIDERS: ATTEND Orthopaedic Surgery
PROC: 0SRD0J9 Replacement of Left Knee Joint with Synthetic Substitute, Cemented, Open Approach (ICD-10-PCS; principal; 2019-10-28)
PROC: 8E0YXBZ Computer Assisted Procedure of Lower Extremity (ICD-10-PCS; 2019-10-28)
PROC: 3E0T3BZ Introduction of Anesthetic Agent into Peripheral Nerves and Plexi, Percutaneous Approach (ICD-10-PCS; 2019-10-28)
PROC: 3E0T3BZ Introduction of Anesthetic Agent into Peripheral Nerves and Plexi, Percutaneous Approach (ICD-10-PCS; 2019-10-28)
DX: M17.12 Unilateral primary osteoarthritis, left knee (principal); G89.18 Other acute postprocedural pain; I10 Essential (primary) hypertension; E78.5 Hyperlipidemia, unspecified; K21.9 Gastro-esophageal reflux disease without esophagitis; G47.33 Obstructive sleep apnea (adult) (pediatric); E66.01 Morbid (severe) obesity due to excess calories; Z68.41 Body mass index [BMI] 40.0-44.9, adult; Z85.72 Personal history of non-Hodgkin lymphomas; Z87.891 Personal history of nicotine dependence; Z79.82 Long term (current) use of aspirin; Z79.899 Other long term (current) drug therapy; Z99.89 Dependence on other enabling machines and devices
CPT/HCPCS: 20985; 27447; 64445; 64447; 73560; 85027; 97110; 97116 ×3; 97139 ×3; 97150 ×2; 97530 ×2; 98961; C1713; C1776; J0690; J1642; J1885; J2001; J2175; J2250; J2270; J2405; J2550; J2704; J2795; J3010; J3370; J3490; J7050

== ENCOUNTER 2020-01-15 07:48 | Outpatient (CLI) | payer MEDICARE, BC ==
--- NOTE | 2020-01-15 12:52 | PET ---
Radionucleotide PET scan with CT attenuation correction HISTORY: Mantle cell lymphoma. Multiple sides. Restaging. COMPARISON: 07/08/2019. FINDINGS: Physiologic uptake of radiotracer throughout the enteric system and along each urinary trac t. Subcarinal lymph node now shows maximum SUV 4.5 (previously 3.4). It now measures 3.7 cm x 2.9 cm gre atest diameters (previously 3.0 x 1.9). At the inferior margin of the splenic hilum, a lobular soft tissue density mass with the appearance o f an enlarged lymph node has developed, measuring 3.6 cm x 3.5 cm greatest diameters, maximum SUV 4.2. Immediately medial to it is a non-hypermetabolic lymph node that has enlarged to 2.3 cm x 1.7 cm . No other areas of abnormal uptake are apparent. The nondiagnostic CT attenuation correction images show subtle area of nodularity within the lateral aspect of the right anterior lung base to be slightly more prominent. Atelectasis at the right posterior lung base has also progressed without hypermetabolic activity. There is prominent calcification throughout the arterial structures. Gallbladder surgically absent. S mall left adrenal adenoma, renal cysts, diverticulosis, and other chronic-type findings are stable. IMPRESSION : Progression of disease, with enlargement and increased activity of the subcarinal adenopathy and mild ly enlarged, hypermetabolic and non-hypermetabolic perisplenic lymph nodes. Interval increase in areas of patchy non-hypermetabolic infiltrate within the right upper lobe and lo wer lobe lung bases. Atherosclerosis.
== END 2020-01-15 07:49 | disposition home or self-care (01) ==
LOC: PET 07:48
PROVIDERS: ATTEND Internal Medicine Hematology & Oncology
DX: C83.18 Mantle cell lymphoma, lymph nodes of multiple sites (principal)
CPT/HCPCS: 78815; A9552

== ENCOUNTER 2020-06-24 09:32 | Outpatient (CLI) | payer MEDICARE, BC ==
--- NOTE | 2020-06-24 10:12 | RAD ---
PA AND LATERAL VIEWS CHEST: HISTORY: Pneumonia. COMPARISON: 06/08/2020. FINDINGS: The heart size is enlarged but stable. Left-sided Port-A-Cath remains in place. Chronic parenchymal changes are again seen. No lobar consolidation, pneumothoraces, or pleural effusions are identified . There are degenerative changes in the spine. IMPRESSION: No acute process. POS: OFF
== END 2020-06-24 09:33 | disposition home or self-care (01) ==
LOC: BICRAD 09:32
PROVIDERS: ATTEND Family Medicine
DX: J18.9 Pneumonia, unspecified organism (principal)
CPT/HCPCS: 71046

== ENCOUNTER 2021-01-14 12:05 | Outpatient (CLI) | payer MEDICARE, BC ==
[2021-01-14 16:10] LABS: Prothrombin Time 10.9 sec (9.5-12.1)
[2021-01-14 16:12] LABS: Anion Gap 12 mmol/L (10-20); BUN (Urea Nitrogen) 18 mg/dL (8.4-25.7); Calc. Creatinine Clearance 0 mL/min (70-130); Carbon Dioxide 26 mmol/L (23-31); Chloride 106 mmol/L (98-107); Glucose 82 mg/dL (83-110); Potassium 4.7 mmol/L (3.5-5.1); Sodium 139 mmol/L (136-145)
[2021-01-14 16:25] LABS: Hemoglobin 13.6 g/dL (13.5-17.5); Mean Corpuscular HGB CONC 32.9 g/dL (32.0-36.0); Mean Corpuscular Volume 91.2 fl (81.2-95.1); Mean Platelet Volume 10.5 fl (7.4-10.4); Platelet Count 316 10x3/uL (150-450); RBC Distribution Width 14.6 % (11.5-14.5); Red Blood Cell (RBC) Count 4.53 10x6/uL (4.32-5.72); White Blood Cell (WBC) Count 7.2 10x3/uL (3.5-10.5)
[2021-01-15 01:24] LABS: SARS-CoV-2 PCR by NAA Not Detected (NotDetected)
== END 2021-01-14 12:06 | disposition home or self-care (01) ==
LOC: LABBT 12:05
PROVIDERS: ATTEND Internal Medicine Cardiovascular Disease
DX: Z01.818 Encounter for other preprocedural examination (principal); Z20.822 Contact with and (suspected) exposure to COVID-19; I48.91 Unspecified atrial fibrillation
CPT/HCPCS: 80048; 85027; 85610; 85730; 93005; U0003; U0005; 87635; 93010

== ENCOUNTER 2021-01-19 07:24 | Observation (INO) | payer MEDICARE, BC ==
[2021-01-19] MEDS ORDERED: Heparin 10,000 UNITS/ 10 ML VIAL ONE ×2 (10:26→12:16)
[2021-01-19] MEDS ORDERED: Fentanyl 100 MCG/2 ML VIAL ONE ×2 (10:30→12:17)
[2021-01-19] MEDS ORDERED: Lidocaine 1% PF 5 ML VIAL ONE (10:59)
[2021-01-19] MEDS ORDERED: Dexamethasone 20 MG/5 ML VIAL ONE (10:59)
[2021-01-19] MEDS ORDERED: Ondansetron PF 4 MG/2 ML Vial ONE (10:59)
[2021-01-19] MEDS ORDERED: Rocuronium Bromide 10 MG/ML (10ML VIAL) ONE (10:59)
[2021-01-19] MEDS ORDERED: PHENYLEPHRINE-NS 100 MCG/ML 10 ML SYRINGE ONE (10:59)
[2021-01-19] MEDS ORDERED: PROPOFOL 200 MG/20 ML VIAL ONE (10:59)
[2021-01-19] MEDS ORDERED: Heparin 25,000 units/D5W 500 ML ONE (12:16)
[2021-01-19] MEDS ORDERED: Isoproterenol 0.2 MG/1 ML AMP ONE (13:28)
[2021-01-19] MEDS ORDERED: Protamine Sulfate 50 MG/5 ML VIAL ONE (15:41)
[2021-01-19] MEDS ORDERED: SUGAMMADEX SODIUM 200 MG/2 ML VIAL ONE (15:41)
[2021-01-19 19:35] VITALS: BMI 39.1
[2021-01-19] MEDS: Apixaban 5 MG TAB PO SCH (20:52)
[2021-01-19] MEDS: Azelastine 137 MCG/Spray 30 ML NS SCH (20:53)
[2021-01-19] MEDS ORDERED: Finasteride 5 MG TAB PO SCH (21:00)
[2021-01-19] MEDS ORDERED: Tamsulosin HCl 0.4 MG CAP PO SCH (21:00)
[2021-01-20] MEDS: Apixaban 5 MG TAB PO SCH (07:24)
[2021-01-20] MEDS: Furosemide 20 MG TAB PO SCH ×2 (07:25→07:31)
[2021-01-20] MEDS: Azelastine 137 MCG/Spray 30 ML NS SCH (07:26)
[2021-01-20] MEDS ORDERED: Cholecalciferol 1,000 UNITS (25 MCG) TAB PO SCH (09:00)
[2021-01-20] MEDS ORDERED: Ascorbic Acid 500 mg Chewable Tablet PO SCH (09:00)
[2021-01-20] MEDS ORDERED: Aspirin 81 mg Enteric Coated Tablet PO SCH (09:00)
[2021-01-20] MEDS ORDERED: Amlodipine 5 MG TAB PO SCH (09:00)
[2021-01-20] MEDS ORDERED: Losartan 25 MG TAB PO SCH (09:00)
[2021-01-20] MEDS ORDERED: Atorvastatin Calcium 40 MG TAB PO SCH (09:00)
[2021-01-20] MEDS ORDERED: Fluticasone Propionate Nasal Spray 16 gm Bottle NASAL SCH (09:00)
[2021-01-20] MEDS ORDERED: Furosemide 40 MG/4 ML VIAL SLOW IVP SCH (09:15)
[2021-01-20] MEDS ORDERED: Potassium Citrate 10 MEQ TAB PO SCH (09:30)
[2021-01-20 11:10] VITALS: BP 133/70; TEMP 98.4
== END 2021-01-20 11:16 | disposition home or self-care (01) ==
LOC: CCL 07:24 → 2SW 19:06
PROVIDERS: ADMIT Internal Medicine Cardiovascular Disease; ATTEND Internal Medicine Cardiovascular Disease
PROC: 4A023FZ Measurement of Cardiac Rhythm, Percutaneous Approach (ICD-10-PCS; principal; 2021-01-19)
PROC: 4A0234Z Measurement of Cardiac Electrical Activity, Percutaneous Approach (ICD-10-PCS; 2021-01-19)
PROC: 02583ZZ Destruction of Conduction Mechanism, Percutaneous Approach (ICD-10-PCS; 2021-01-19)
PROC: 02K83ZZ Map Conduction Mechanism, Percutaneous Approach (ICD-10-PCS; 2021-01-19)
DX: I48.19 Other persistent atrial fibrillation (principal); I25.10 Atherosclerotic heart disease of native coronary artery without angina pectoris; I10 Essential (primary) hypertension; E78.00 Pure hypercholesterolemia, unspecified; J84.10 Pulmonary fibrosis, unspecified; G47.33 Obstructive sleep apnea (adult) (pediatric); Z79.01 Long term (current) use of anticoagulants; Z79.82 Long term (current) use of aspirin; Z79.51 Long term (current) use of inhaled steroids; Z79.899 Other long term (current) drug therapy
CPT/HCPCS: 71045; 76942; 85347 ×2; 92960; 93005; 93613; 93656; 93657; 93662; 96374; C1732 ×3; C1759; G0378 ×2; 93010; J1100; J1644; J1940; J2405; J2704; J2720; J3010

== ENCOUNTER 2021-02-23 08:39 | Outpatient (CLI) | payer MEDICARE, BC ==
[2021-02-23 10:08] LABS: Hemoglobin 12.8 g/dL (13.5-17.5); Mean Corpuscular HGB CONC 33.7 g/dL (32.0-36.0); Mean Corpuscular Hemoglobin 31.1 pg (27.0-33.0); Mean Corpuscular Volume 92.5 fl (81.2-95.1); Mean Platelet Volume 10.1 fl (7.4-10.4); Platelet Count 306 10x3/uL (150-450); RBC Distribution Width 13.9 % (11.5-14.5); Red Blood Cell (RBC) Count 4.11 10x6/uL (4.32-5.72); White Blood Cell (WBC) Count 6.4 10x3/uL (3.5-10.5)
[2021-02-23 10:33] LABS: PTT 28.7 sec (22.0-33.0); Prothrombin Time 10.8 sec (9.5-12.1)
[2021-02-23 10:38] LABS: Anion Gap 15 mmol/L (10-20); BUN (Urea Nitrogen) 20 mg/dL (8.4-25.7); Calc. Creatinine Clearance 0 mL/min (70-130); Calcium 9.9 mg/dL (7.8-10.44); Carbon Dioxide 20 mmol/L (23-31); Chloride 109 mmol/L (98-107); Glucose 92 mg/dL (83-110); Potassium 4.6 mmol/L (3.5-5.1); Sodium 139 mmol/L (136-145)
[2021-02-23 17:06] LABS: SARS-CoV-2 PCR by NAA Not Detected (NotDetected)
== END 2021-02-23 08:40 | disposition home or self-care (01) ==
LOC: LABBT 08:39
PROVIDERS: ATTEND Family Medicine
DX: Z01.818 Encounter for other preprocedural examination (principal); I48.91 Unspecified atrial fibrillation; Z20.822 Contact with and (suspected) exposure to COVID-19
CPT/HCPCS: 80048; 85027; 85610; 85730; U0003; U0005; 87635; 93005; 93010

== ENCOUNTER 2021-02-25 07:32 | Outpatient (CLI) | payer MEDICARE, BC | END 2021-02-25 07:33 | disposition home or self-care (01) | LOC: PET 07:32 | PROVIDERS: ATTEND Internal Medicine Hematology & Oncology | DX: C83.10 Mantle cell lymphoma, unspecified site (principal); N20.0 Calculus of kidney; R91.8 Other nonspecific abnormal finding of lung field | CPT/HCPCS: 78815; A9552 ==

== ENCOUNTER 2021-02-28 08:39 | Day surgery (SDC) | payer MEDICARE, BC ==
[2021-02-24 11:51] VITALS: BMI 38.2
[2021-02-28] MEDS ORDERED: Sodium Chloride 0.9% 20 ML ONE (09:14)
[2021-02-28] MEDS ORDERED: PROPOFOL 20 ML ONE (11:46)
[2021-02-28] MEDS ORDERED: Ketamine 50 MG/ML (10ML VIAL) ONE (11:47)
[2021-02-28] MEDS ORDERED: Midazolam HCl 2 mg/2 ml Vial ONE (11:48)
== END 2021-02-28 12:55 | disposition home or self-care (01) ==
LOC: CCL 08:39
PROVIDERS: ATTEND Internal Medicine Cardiovascular Disease
PROC: 5A2204Z Restoration of Cardiac Rhythm, Single (ICD-10-PCS; principal; 2021-02-28)
DX: I48.19 Other persistent atrial fibrillation (principal); C83.12 Mantle cell lymphoma, intrathoracic lymph nodes; G47.33 Obstructive sleep apnea (adult) (pediatric); I10 Essential (primary) hypertension; E78.00 Pure hypercholesterolemia, unspecified; I25.10 Atherosclerotic heart disease of native coronary artery without angina pectoris; K21.9 Gastro-esophageal reflux disease without esophagitis; E66.9 Obesity, unspecified; Z68.38 Body mass index [BMI] 38.0-38.9, adult; Z87.891 Personal history of nicotine dependence; Z79.01 Long term (current) use of anticoagulants; Z79.82 Long term (current) use of aspirin; Z79.899 Other long term (current) drug therapy; Z88.8 Allergy status to other drugs, medicaments and biological substances
CPT/HCPCS: 92960; 93005; 93010; J1642; J2250; J2704

== ENCOUNTER 2021-08-25 07:41 | Outpatient (CLI) | payer MEDICARE, BC | END 2021-08-25 07:42 | disposition home or self-care (01) | LOC: PET 07:41 | PROVIDERS: ATTEND Internal Medicine Hematology & Oncology | DX: C83.10 Mantle cell lymphoma, unspecified site (principal) | CPT/HCPCS: 78815; A9552 ==

== ENCOUNTER 2022-03-24 08:00 | Outpatient (CLI) | payer MEDICARE, BC | END 2022-03-24 08:01 | disposition home or self-care (01) | LOC: PET 08:00 | PROVIDERS: ATTEND Internal Medicine Hematology & Oncology | DX: C83.10 Mantle cell lymphoma, unspecified site (principal) | CPT/HCPCS: 78815; A9552 ==

== ENCOUNTER 2022-04-05 09:15 | Outpatient (CLI) | payer MEDICARE, BC | END 2022-04-05 09:16 | disposition home or self-care (01) | LOC: LABBT 09:15 | PROVIDERS: ATTEND Internal Medicine Hematology & Oncology | DX: Z20.822 Contact with and (suspected) exposure to COVID-19 (principal) | CPT/HCPCS: U0003; U0005 ==

== ENCOUNTER 2022-04-10 08:37 | Day surgery (SDC) | payer MEDICARE, BC ==
[2022-04-07 10:04] VITALS: BMI 38.2
[2022-04-10 08:45] LABS: #Eosinphils 0.2 thou/uL (0.0-0.7); #Lymphocytes 1.1 thou/uL (1.20-3.40); #Monocytes 0.6 thou/uL (0.11-0.59); #Neutrophils 5.3 thou/uL (1.40-6.50); %Basophils 0.6 % (0.0-1.0); %Eosinophils 2.7 % (0.0-10.0); %Lymphocytes 15.2 % (21.0-51.0); %Monocytes 7.9 % (0.0-10.0); %Neutrophils 73.6 % (42.0-75.0); Hemoglobin 13.1 g/dL (14.0-18.0); Mean Corpuscular HGB CONC 32.2 g/dL (32.0-36.0); Mean Corpuscular Volume 96.4 fL (78.0-98.0); Platelet Count 261 thou/uL (130-400); RBC Distribution Width 12.3 % (11.5-14.5); Red Blood Cell (RBC) Count 4.24 mill/uL (4.70-6.10); White Blood Cell (WBC) Count 7.1 thou/uL (4.8-10.8)
[2022-04-10 08:56] LABS: INR-International Normal Ratio 0.9; PTT 27.6 sec (22.9-36.1)
[2022-04-10 16:06] VITALS: BP 139/76; TEMP 97.7
== END 2022-04-10 13:50 | disposition home or self-care (01) ==
LOC: CT 08:37
PROVIDERS: ATTEND Internal Medicine Hematology & Oncology
PROC: 0BBF3ZX Excision of Right Lower Lung Lobe, Percutaneous Approach, Diagnostic (ICD-10-PCS; principal; 2022-04-10)
DX: C83.18 Mantle cell lymphoma, lymph nodes of multiple sites (principal); G47.33 Obstructive sleep apnea (adult) (pediatric); E78.5 Hyperlipidemia, unspecified; I10 Essential (primary) hypertension; I25.10 Atherosclerotic heart disease of native coronary artery without angina pectoris; I48.91 Unspecified atrial fibrillation; Z87.891 Personal history of nicotine dependence; Z79.01 Long term (current) use of anticoagulants; Z79.82 Long term (current) use of aspirin; Z79.899 Other long term (current) drug therapy; Z88.8 Allergy status to other drugs, medicaments and biological substances
CPT/HCPCS: 32408; 71045; 77012; 85025; 85610; 85730; 88184; 88305

== ENCOUNTER 2022-05-09 08:39 | Outpatient (CLI) | payer MEDICARE, BC | END 2022-05-09 08:40 | disposition home or self-care (01) | LOC: BICRAD 08:39 | PROVIDERS: ATTEND Internal Medicine Hematology & Oncology | DX: C34.31 Malignant neoplasm of lower lobe, right bronchus or lung (principal); C83.18 Mantle cell lymphoma, lymph nodes of multiple sites; R91.8 Other nonspecific abnormal finding of lung field | CPT/HCPCS: 71046 ==

== ENCOUNTER → 2022-09-19 | Outpatient (CLI) | payer MEDICARE, BC | LOC: PET 08:45 | PROVIDERS: ATTEND Internal Medicine Hematology & Oncology | DX: C34.31 Malignant neoplasm of lower lobe, right bronchus or lung (principal); C85.90 Non-Hodgkin lymphoma, unspecified, unspecified site; R91.1 Solitary pulmonary nodule; Z90.2 Acquired absence of lung [part of] | CPT/HCPCS: 78815; A9552 ==

== ENCOUNTER 2022-10-24 13:35 | Outpatient (CLI) | payer MEDICARE, BC | END 2022-10-24 13:36 | disposition home or self-care (01) | LOC: BICRAD 13:35 | PROVIDERS: ATTEND Family Medicine | DX: J40 Bronchitis, not specified as acute or chronic (principal) | CPT/HCPCS: 71046 ==

== ENCOUNTER 2023-01-15 14:23 | Inpatient (IN) | payer MEDICARE, BC ==
[2023-01-15 15:59] VITALS: BMI 36.0
[2023-01-15] MEDS ORDERED: Ondansetron PF 4 MG/2 ML Vial IVP PRN (17:59)
[2023-01-15] MEDS ORDERED: Acetaminophen 500 MG TAB PO PRN (17:59)
[2023-01-15] MEDS ORDERED: Ondansetron ODT 4 MG TAB PO PRN (17:59)
[2023-01-15 18:32] LABS: Anion Gap 12 mmol/L (10-20); BUN (Urea Nitrogen) 26 mg/dL (8.4-25.7); Calc. Creatinine Clearance 87 mL/min (70-130); Calcium 10.2 mg/dL (7.8-10.44); Carbon Dioxide 23 mmol/L (23-31); Chloride 108 mmol/L (98-107); Estimated GFR 60; Glucose 86 mg/dL (83-110); Magnesium 2.1 mg/dL (1.6-2.6); Potassium 4.7 mmol/L (3.5-5.1); Sodium 138 mmol/L (136-145)
[2023-01-15] MEDS: Fluticasone Propionate Nasal Spray 16 gm Bottle NASAL SCH (20:31)
[2023-01-15] MEDS: Apixaban 5 MG TAB PO SCH (20:31)
[2023-01-15] MEDS: Aspirin 81 mg Enteric Coated Tablet PO SCH (20:31)
[2023-01-15] MEDS: Azelastine 137 MCG/Spray 30 ML NS SCH (20:32)
[2023-01-15] MEDS: Dofetilide 0.125 MG CAP PO SCH (20:33)
[2023-01-16 07:33] LABS: Anion Gap 11 mmol/L (10-20); BUN (Urea Nitrogen) 21 mg/dL (8.4-25.7); Calc. Creatinine Clearance 94 mL/min (70-130); Calcium 10.7 mg/dL (7.8-10.44); Carbon Dioxide 26 mmol/L (23-31); Chloride 106 mmol/L (98-107); Estimated GFR 66; Glucose 106 mg/dL (83-110); Potassium 4.5 mmol/L (3.5-5.1); Sodium 138 mmol/L (136-145)
[2023-01-16] MEDS: Apixaban 5 MG TAB PO SCH ×2 (08:40→21:11)
[2023-01-16] MEDS: Dofetilide 0.125 MG CAP PO SCH ×2 (08:40→21:10)
[2023-01-16] MEDS: Azelastine 137 MCG/Spray 30 ML NS SCH ×2 (08:40→21:14)
[2023-01-16] MEDS: Furosemide 20 MG TAB PO SCH (08:41)
[2023-01-16] MEDS: Tamsulosin HCl 0.4 MG CAP PO SCH (08:41)
[2023-01-16] MEDS: Losartan 25 MG TAB PO SCH (08:41)
[2023-01-16] MEDS: Fluticasone Propionate Nasal Spray 16 gm Bottle NASAL SCH ×2 (08:41→21:14)
[2023-01-16] MEDS: Finasteride 5 MG TAB PO SCH (08:41)
[2023-01-16] MEDS: CO Q-10 CAPSULE 100 MG PO SCH (08:42)
[2023-01-16] MEDS ORDERED: Atorvastatin Calcium 40 MG TAB PO SCH (21:00)
[2023-01-16] MEDS: Aspirin 81 mg Enteric Coated Tablet PO SCH (21:12)
[2023-01-17 05:49] LABS: Anion Gap 9 mmol/L (10-20); BUN (Urea Nitrogen) 20 mg/dL (8.4-25.7); Calc. Creatinine Clearance 92 mL/min (70-130); Calcium 10.2 mg/dL (7.8-10.44); Carbon Dioxide 26 mmol/L (23-31); Chloride 107 mmol/L (98-107); Estimated GFR 64; Glucose 102 mg/dL (83-110); Magnesium 1.9 mg/dL (1.6-2.6); Potassium 4.1 mmol/L (3.5-5.1); Sodium 138 mmol/L (136-145)
[2023-01-17] MEDS: Dofetilide 0.125 MG CAP PO SCH (08:09)
[2023-01-17] MEDS: Tamsulosin HCl 0.4 MG CAP PO SCH (08:10)
[2023-01-17] MEDS: Fluticasone Propionate Nasal Spray 16 gm Bottle NASAL SCH (08:10)
[2023-01-17] MEDS: Apixaban 5 MG TAB PO SCH (08:10)
[2023-01-17] MEDS: Finasteride 5 MG TAB PO SCH (08:10)
[2023-01-17] MEDS: Azelastine 137 MCG/Spray 30 ML NS SCH (08:10)
[2023-01-17] MEDS: Losartan 25 MG TAB PO SCH (08:10)
[2023-01-17] MEDS: Furosemide 20 MG TAB PO SCH (08:10)
[2023-01-17] MEDS: CO Q-10 CAPSULE 100 MG PO SCH (08:10)
[2023-01-17] MEDS ORDERED: PROPOFOL 200 MG/20 ML VIAL ONE (12:55)
[2023-01-17] MEDS ORDERED: Lidocaine 1% PF 5 ML VIAL ONE (12:55)
[2023-01-17 17:56] VITALS: BP 127/66; TEMP 98.6
== END 2023-01-17 17:48 | disposition home or self-care (01) | DRG 310 ==
LOC: 2SW 15:24
PROVIDERS: ADMIT Family Medicine; ATTEND Internal Medicine
PROC: 5A2204Z Restoration of Cardiac Rhythm, Single (ICD-10-PCS; principal; 2023-01-17)
PROC: 5A09357 Assistance with Respiratory Ventilation, Less than 24 Consecutive Hours, Continuous Positive Airway Pressure (ICD-10-PCS; 2023-01-17)
DX: I48.19 Other persistent atrial fibrillation (principal); Z92.21 Personal history of antineoplastic chemotherapy; I25.10 Atherosclerotic heart disease of native coronary artery without angina pectoris; K21.9 Gastro-esophageal reflux disease without esophagitis; K44.9 Diaphragmatic hernia without obstruction or gangrene; E78.00 Pure hypercholesterolemia, unspecified; I10 Essential (primary) hypertension; G47.33 Obstructive sleep apnea (adult) (pediatric); N40.0 Benign prostatic hyperplasia without lower urinary tract symptoms; E66.9 Obesity, unspecified; Z90.49 Acquired absence of other specified parts of digestive tract; Z98.52 Vasectomy status; Z90.2 Acquired absence of lung [part of]; Z98.890 Other specified postprocedural states; Z79.899 Other long term (current) drug therapy; Z85.118 Personal history of other malignant neoplasm of bronchus and lung; Z92.3 Personal history of irradiation; Z79.01 Long term (current) use of anticoagulants; Z79.51 Long term (current) use of inhaled steroids; Z88.8 Allergy status to other drugs, medicaments and biological substances; Z82.49 Family history of ischemic heart disease and other diseases of the circulatory system; Z68.36 Body mass index [BMI] 36.0-36.9, adult; Z85.72 Personal history of non-Hodgkin lymphomas; R00.1 Bradycardia, unspecified
CPT/HCPCS: 80048; 83735; 92960; 93005; 93010; J2704; J8499

== ENCOUNTER 2023-05-04 10:00 | Inpatient (IN) | payer MEDICARE, BC ==
[2023-04-27 14:06] VITALS: BMI 36.0
[2023-05-04 11:11] LABS: Bilirubin Neg (Negative); Blood, Urine Negative (Negative); Clarity Clear (Clear); Glucose, Urine (Dipstick) Normal (Negative); Ketone, Urine Negative (Negative); Leukocyte Negative (Negative); Nitrite Negative (Negative); Protein, Urine (Dipstick) Negative (Neg-Trace); Urobilinogen Normal mg/dL (Less than 2)
[2023-05-04 11:25] LABS: Hemoglobin 12.1 g/dL (13.5-17.5); Mean Corpuscular Hemoglobin 30.8 pg (27.0-33.0); Mean Corpuscular Volume 93.4 fl (81.2-95.1); Mean Platelet Volume 9.8 fl (7.4-10.4); Platelet Count 267 10x3/uL (150-450); RBC Distribution Width 13.2 % (11.5-14.5); Red Blood Cell (RBC) Count 3.93 10x6/uL (4.32-5.72); White Blood Cell (WBC) Count 5.4 10x3/uL (3.5-10.5)
[2023-05-04 11:39] LABS: PTT 30.5 sec (22.0-33.0); Prothrombin Time 10.7 sec (9.5-12.1)
[2023-05-04 12:23] LABS: ALT (SGPT) 19 U/L (8-55); AST (SGOT) 19 U/L (5-34); Albumin 4.1 g/dL (3.4-4.8); Alkaline Phosphatase 79 U/L (40-110); Anion Gap 13 mmol/L (10-20); BUN (Urea Nitrogen) 24 mg/dL (8.4-25.7); Bilirubin, Total 0.5 mg/dL (0.2-1.2); Calc. Creatinine Clearance 86 mL/min (70-130); Calcium 10.5 mg/dL (7.8-10.44); Carbon Dioxide 23 mmol/L (23-31); Chloride 107 mmol/L (98-107); Estimated GFR 60; Globulin 2.4 g/dL (2.4-3.5); Glucose 98 mg/dL (83-110); Potassium 4.7 mmol/L (3.5-5.1); Protein, Total 6.5 g/dL (5.8-8.1); Sodium 138 mmol/L (136-145)
[2023-05-09] MEDS ORDERED: CEFAZOLIN 1 GM VIAL ONE (06:49)
[2023-05-09] MEDS ORDERED: Heparin 10,000 UNITS/ 10 ML VIAL ONE (06:49)
[2023-05-09] MEDS ORDERED: Protamine Sulfate 50 MG/5 ML VIAL ONE (06:49)
[2023-05-09] MEDS ORDERED: Norepinephrine 4 MG/4 ML VIAL ONE (06:58)
[2023-05-09] MEDS ORDERED: fentaNYL 50 mcg/mL 1 mL Vial ONE (06:58)
[2023-05-09] MEDS ORDERED: Vasopressin 20 UNITS/ML VIAL ONE (06:58)
[2023-05-09] MEDS ORDERED: Dexamethasone 20 MG/5 ML VIAL ONE (07:44)
[2023-05-09] MEDS ORDERED: PROPOFOL 200 MG/20 ML VIAL ONE (07:44)
[2023-05-09] MEDS ORDERED: Lidocaine 1% PF 5 ML VIAL ONE (07:44)
[2023-05-09] MEDS ORDERED: Ondansetron PF 4 MG/2 ML Vial ONE (07:44)
[2023-05-09] MEDS ORDERED: Rocuronium Bromide 10 MG/ML (10ML VIAL) ONE (07:44)
[2023-05-09] MEDS ORDERED: SUGAMMADEX SODIUM 200 MG/2 ML VIAL ONE (09:13)
[2023-05-09] MEDS ORDERED: Promethazine HCl 25 MG/ML VIAL ONE (09:39)
[2023-05-09] MEDS ORDERED: fentaNYL PF 100 MCG/2 ML SYRINGE ONE (09:53)
[2023-05-09] MEDS ORDERED: Acetaminophen/Codeine 30-300mg Tablet ONE (10:16)
[2023-05-09] MEDS ORDERED: Iopamidol 370 76% 100 ML VIAL ONE (15:02)
== END 2023-05-09 16:05 | disposition home or self-care (01) | DRG 274 ==
LOC: SURG A 05-09 05:52
PROVIDERS: ADMIT Internal Medicine Cardiovascular Disease; ATTEND Internal Medicine Cardiovascular Disease
PROC: 02L73DK Occlusion of Left Atrial Appendage with Intraluminal Device, Percutaneous Approach (ICD-10-PCS; principal; 2023-05-09)
PROC: B24BZZ4 Ultrasonography of Heart with Aorta, Transesophageal (ICD-10-PCS; 2023-05-09)
PROC: 3E033XZ Introduction of Vasopressor into Peripheral Vein, Percutaneous Approach (ICD-10-PCS; 2023-05-09)
DX: I48.19 Other persistent atrial fibrillation (principal); Z00.6 Encounter for examination for normal comparison and control in clinical research program; C34.90 Malignant neoplasm of unspecified part of unspecified bronchus or lung; C83.10 Mantle cell lymphoma, unspecified site; I10 Essential (primary) hypertension; G47.33 Obstructive sleep apnea (adult) (pediatric); K21.9 Gastro-esophageal reflux disease without esophagitis; E78.00 Pure hypercholesterolemia, unspecified; Z98.890 Other specified postprocedural states; Z79.899 Other long term (current) drug therapy; Z79.51 Long term (current) use of inhaled steroids; Z79.82 Long term (current) use of aspirin; Z87.891 Personal history of nicotine dependence; Z82.49 Family history of ischemic heart disease and other diseases of the circulatory system; Z90.49 Acquired absence of other specified parts of digestive tract; Z98.52 Vasectomy status
CPT/HCPCS: 80053; 81003; 85027; 85347; 85610; 85730; 86850; 86900; 86901; 93005; 93010; 93306; 93312; C1759; C1760; C1894; J0690; J1100; J1644; J2405; J2550; J2704; J2720; J3010; Q9967

== ENCOUNTER 2023-06-27 05:54 | Day surgery (SDC) | payer MEDICARE, BC ==
[2023-06-25 08:44] VITALS: BMI 36.3
[2023-06-25 08:46] LABS: Hematocrit 36.1 % (38.8-50.0); Mean Corpuscular HGB CONC 33.2 g/dL (32.0-36.0); Mean Corpuscular Hemoglobin 30.8 pg (27.0-33.0); Mean Corpuscular Volume 92.8 fl (81.2-95.1); Mean Platelet Volume 9.2 fl (7.4-10.4); Platelet Count 263 10x3/uL (150-450); RBC Distribution Width 12.7 % (11.5-14.5); Red Blood Cell (RBC) Count 3.89 10x6/uL (4.32-5.72); White Blood Cell (WBC) Count 6.3 10x3/uL (3.5-10.5)
[2023-06-25 09:38] LABS: Anion Gap 12 mmol/L (10-20); BUN (Urea Nitrogen) 22 mg/dL (8.4-25.7); Calc. Creatinine Clearance 87 mL/min (70-130); Calcium 10.3 mg/dL (7.8-10.44); Carbon Dioxide 24 mmol/L (23-31); Chloride 108 mmol/L (98-107); Estimated GFR 60; Glucose 100 mg/dL (83-110); Potassium 4.6 mmol/L (3.5-5.1); Sodium 139 mmol/L (136-145)
[2023-06-27] MEDS ORDERED: Lidocaine 2% PF 100 mg/5 ml Syringe ONE (07:43)
[2023-06-27] MEDS ORDERED: PROPOFOL 40 ML ONE (07:43)
== END 2023-06-27 09:20 | disposition home or self-care (01) ==
LOC: SDC 05:54
PROVIDERS: ATTEND Internal Medicine Cardiovascular Disease
PROC: B246ZZ4 Ultrasonography of Right and Left Heart, Transesophageal (ICD-10-PCS; principal; 2023-06-27)
DX: I48.19 Other persistent atrial fibrillation (principal); Z79.01 Long term (current) use of anticoagulants
CPT/HCPCS: 80048; 85027; 93312; J2001; J2704

== ENCOUNTER 2023-07-24 10:15 | Outpatient (CLI) | payer MEDICARE, BC | END 2023-07-24 10:16 | disposition home or self-care (01) | LOC: PET 10:15 | PROVIDERS: ATTEND Internal Medicine Hematology & Oncology | DX: C34.31 Malignant neoplasm of lower lobe, right bronchus or lung (principal); C83.18 Mantle cell lymphoma, lymph nodes of multiple sites; R59.0 Localized enlarged lymph nodes; R91.1 Solitary pulmonary nodule; J90 Pleural effusion, not elsewhere classified | CPT/HCPCS: 78815; A9552 ==

== ENCOUNTER 2023-08-13 09:30 | Day surgery (SDC) | payer MEDICARE, BC ==
[2023-08-13 09:45] LABS: #Eosinphils 0.2 thou/uL (0.0-0.7); #Monocytes 0.6 thou/uL (0.11-0.59); #Neutrophils 4.9 thou/uL (1.40-6.50); %Basophils 0.5 % (0.0-1.0); %Eosinophils 3.4 % (0.0-10.0); %Monocytes 9.8 % (0.0-10.0); %Neutrophils 75.1 % (42.0-75.0); Hematocrit 35.1 % (42.0-52.0); Hemoglobin 11.4 g/dL (14.0-18.0); Mean Corpuscular HGB CONC 32.5 g/dL (32.0-36.0); Mean Corpuscular Hemoglobin 30.4 pg (27.0-31.0); Mean Corpuscular Volume 93.6 fl (78.0-98.0); Mean Platelet Volume 8.6 fL (7.4-10.4); Platelet Count 375 10x3/uL (130-400); RBC Distribution Width 12.4 % (11.5-14.5); Red Blood Cell (RBC) Count 3.75 mill/uL (4.70-6.10); White Blood Cell (WBC) Count 6.5 10x3/uL (4.8-10.8)
[2023-08-13 10:01] LABS: PTT 32.6 sec (22.9-36.1)
[2023-08-13 10:22] VITALS: BP 128/68; TEMP 97.7
[2023-08-13] MEDS ORDERED: FLU VACC QS2023(65UP)/MF59C/PF 60 MCG/0.5 ML SYRINGE IM ONE (16:00)
== END 2023-08-13 12:30 | disposition home or self-care (01) ==
LOC: CT 09:30
PROVIDERS: ATTEND Internal Medicine Hematology & Oncology
PROC: 07DJ3ZX Extraction of Left Inguinal Lymphatic, Percutaneous Approach, Diagnostic (ICD-10-PCS; principal; 2023-08-13)
DX: C83.15 Mantle cell lymphoma, lymph nodes of inguinal region and lower limb (principal); C34.31 Malignant neoplasm of lower lobe, right bronchus or lung; C83.18 Mantle cell lymphoma, lymph nodes of multiple sites; R93.89 Abnormal findings on diagnostic imaging of other specified body structures
CPT/HCPCS: 36415; 38505; 85025; 85610; 85730; 88112; 88173; 88184; 88185; 88189; 88307; 88333; 88334; 88341; 88342; 88360

== ENCOUNTER 2023-08-20 08:09 | Outpatient (CLI) | payer MEDICARE, BC | END 2023-08-20 08:10 | disposition home or self-care (01) | LOC: RAD 08:09 | PROVIDERS: ATTEND Internal Medicine Critical Care Medicine | DX: R06.00 Dyspnea, unspecified (principal); J90 Pleural effusion, not elsewhere classified; J98.4 Other disorders of lung | CPT/HCPCS: 71046 ==

== ENCOUNTER 2023-12-14 09:30 | Outpatient (CLI) | payer MEDICARE | END 2023-12-14 09:31 | disposition home or self-care (01) | LOC: PET 09:30 | PROVIDERS: ATTEND Internal Medicine Hematology & Oncology | DX: C83.18 Mantle cell lymphoma, lymph nodes of multiple sites (principal); C91.10 Chronic lymphocytic leukemia of B-cell type not having achieved remission; R59.0 Localized enlarged lymph nodes; R91.1 Solitary pulmonary nodule | CPT/HCPCS: 78815; A9552 ==

== ENCOUNTER 2023-12-21 08:33 | Outpatient (CLI) | payer MEDICARE | END 2023-12-21 08:34 | disposition home or self-care (01) | LOC: RAD 08:33 | PROVIDERS: ATTEND Internal Medicine Critical Care Medicine | DX: R06.00 Dyspnea, unspecified (principal) | CPT/HCPCS: 71046 ==

== ENCOUNTER 2024-05-12 08:00 | Outpatient (CLI) | payer MEDICARE | END 2024-05-12 08:01 | disposition home or self-care (01) | LOC: PET 08:00 | PROVIDERS: ATTEND Internal Medicine Hematology & Oncology | DX: C34.31 Malignant neoplasm of lower lobe, right bronchus or lung (principal); C83.18 Mantle cell lymphoma, lymph nodes of multiple sites; R91.1 Solitary pulmonary nodule | CPT/HCPCS: 78815; A9552 ==

== ENCOUNTER 2024-08-12 15:13 | Inpatient (IN) | payer MEDICARE ==
[~2024-08-12 15:13] MED LIST changes: -Iopamidol 370 76% 100 ML VIAL ONE; +Iopamidol-370 76% 500 ML MDV (1 ML CHARGE) ONE
[2024-08-12] MEDS ORDERED: EPINEPHrine 1 MG/ML VIAL ONE (15:26)
[2024-08-12] MEDS ORDERED: dilTIAZem 25 MG/5 ML VIAL ONE (15:45)
[2024-08-12] MEDS ORDERED: Albuterol 2.5 MG (3 mL) NEB ONE (15:57)
[2024-08-12 16:06] LABS: Troponin I 0.011 ng/mL (< 0.028)
[2024-08-12 16:10] LABS: ALT (SGPT) 29 U/L (8-55); AST (SGOT) 75 U/L (5-34); Albumin 2.2 g/dL (3.4-4.8); Alkaline Phosphatase 155 U/L (40-110); Anion Gap 16 mmol/L (10-20); BUN (Urea Nitrogen) 24 mg/dL (8.4-25.7); Bilirubin, Total 1.1 mg/dL (0.2-1.2); Calc. Creatinine Clearance 0 mL/min (70-130); Calcium 10.5 mg/dL (7.8-10.44); Carbon Dioxide 21 mmol/L (23-31); Chloride 99 mmol/L (98-107); Estimated GFR 50; Globulin 4.1 g/dL (2.4-3.5); Glucose 115 mg/dL (83-110); Magnesium 1.8 mg/dL (1.6-2.6); Potassium 5.5 mmol/L (3.5-5.1); Protein, Total 6.3 g/dL (5.8-8.1); Sodium 130 mmol/L (136-145); Uric Acid 7.7 mg/dL (3.5-7.2)
[2024-08-12 16:10] LABS: Actual Bicarbonate (HCO3a) 19.6 mEq/L (22-28); Analyzer IN Cardio ER; Base Excess (BEa) -3.8 mEq/L (-2.0 to +3.0); CO2 Tension 30.2 mmHg (35.0-45.0); Calcium, Ionized (arterial) 1.42 mmol/L (1.12-1.30); Carboxyhemoglobin (COHb) 0.5 gm% (0.0-3.0); Hematocrit-ABG 31 % (42.0-52.0); Hemoglobin (Hb) 10.4 g/dL (14.0-18.0); O2 Tension (PaO2), arterial 157.1 mmHg (> 60.0); Potassium - ABG Lab 5.47 mmol/L (3.70-5.30); pH, Arterial 7.431 (7.35-7.45)
[2024-08-12 16:11] LABS: Puncture Site Right Radial artery
[2024-08-12 16:12] LABS: Hematocrit 30.2 % (42.0-52.0); Hemoglobin 9.9 g/dL (14.0-18.0); Mean Corpuscular HGB CONC 32.8 g/dL (32.0-36.0); Mean Corpuscular Hemoglobin 29.4 pg (27.0-31.0); Mean Corpuscular Volume 89.6 fL (78.0-98.0); Mean Platelet Volume 10.3 fL (7.4-10.4); Platelet Count 209 10x3/uL (130-400); RBC Distribution Width 13.7 % (11.5-14.5); Red Blood Cell (RBC) Count 3.37 mill/uL (4.70-6.10)
[2024-08-12 16:27] LABS: Band 5 % (5-11); Burr Cells SLIGHT = 2-5 cells HPF (0-1); Macrocytosis SLIGHT = 6-15 cells HPF (0-5); Myelocyte 2 % (0-0); Neutrophil 92 % (42-75); Ovalocytes SLIGHT = 2-5 cells HPF (0-1); Platelet Adequacy Comment Platelets Normal; Polychromasia SLIGHT = 2-3 cells HPF (0-2); Schistocytes SLIGHT = 2-5 cells HPF (0-1)
[2024-08-12 16:38] LABS: Phosphorus 3.4 mg/dL (2.3-4.7)
[2024-08-12] MEDS ORDERED: Cefepime 2 GM VIAL ONE (17:22)
[2024-08-12] MEDS ORDERED: Acetaminophen 650 MG Suppository ONE (17:22)
[2024-08-12] MEDS ORDERED: Sodium Chloride 0.9% 100 ML ONE (17:24)
[2024-08-12 17:35] LABS: Bacteria/HPF None Seen HPF (None Seen); Bilirubin 1+ (Negative); Blood, Urine 1+ (Negative); CAUTI Indications for Culture Alt mental st,lethar; Clarity Turbid (Clear); Glucose, Urine (Dipstick) Normal (Negative); Ketone, Urine Negative (Negative); Leukocyte Negative Leu/uL (Negative); Nitrite Negative (Negative); Protein, Urine (Dipstick) 100 mg/dL (Neg-Trace); RBC/HPF 0-3 HPF (0-3); Squamous Epithelial 0-3 HPF (0-3); WBC/HPF 0-3 HPF (0-3); pH, Urine 5.5 (5.0-9.0)
[2024-08-12 17:39] LABS: Urine Culture Reflex No No
[2024-08-12] MEDS ORDERED: Acetaminophen 500 MG TAB ONE (17:42)
[2024-08-12 21:12] LABS: #Basophils Less than 0.03 10x3/uL (0.0-0.2); #Eosinophils Less than 0.03 10x3/uL (0.0-0.7); %Basophils 0.1 % (0.0-1.0); %Eosinophils 0.1 % (0.0-10.0); %Lymphocytes 0.7 % (21.0-51.0); %Monocytes 1.2 % (0.0-10.0); %Neutrophils 97.1 % (42.0-75.0); Hematocrit 25.5 % (42.0-52.0); Hemoglobin 8.1 g/dL (14.0-18.0); Mean Corpuscular HGB CONC 31.8 g/dL (32.0-36.0); Mean Corpuscular Hemoglobin 29.8 pg (27.0-31.0); Mean Corpuscular Volume 93.8 fL (78.0-98.0); Mean Platelet Volume 10.1 fL (7.4-10.4); Platelet Count 178 10x3/uL (130-400); RBC Distribution Width 13.8 % (11.5-14.5); Red Blood Cell (RBC) Count 2.72 mill/uL (4.70-6.10)
[2024-08-12 21:14] LABS: Pleural Fluid, Protein 3.1 g/dL
[2024-08-12] MEDS ORDERED: Acetaminophen 650 MG Suppository PR PRN (21:51)
[2024-08-12] MEDS ORDERED: Dextrose 50% Abboject 50 ML SYRINGE SLOW IVP PRN (21:57)
[2024-08-12] MEDS ORDERED: Dextrose 5% in Water 1,000 ML IV PRN (21:57)
[2024-08-12] MEDS ORDERED: Glucagon 1 MG/ML KIT IM PRN (21:57)
[2024-08-12 22:37] VITALS: BMI 35.9
[2024-08-12] MEDS: Vancomycin (BATCH) 2.5 GM in Premix 1 BAG IVPB SCH (22:59)
[2024-08-12] MEDS: Sodium Chloride 0.9% 1,000 ML IV SCH (23:11)
[2024-08-12] MEDS: HYDROcodone/Acetaminophen 5/325 mg Tablet PO PRN (23:11)
[2024-08-12] MEDS: Albumin 25% 25 GM (100 mL) BOT IVPB SCH (23:11)
[2024-08-12] MEDS: Dofetilide 0.125 MG CAP PO SCH (23:12)
[2024-08-13] MEDS: Acetaminophen 325 MG TAB PO SCH (00:25)
[2024-08-13] MEDS: Morphine 2 MG/ML VIAL SLOW IVP PRN (03:42)
[2024-08-13 04:28] LABS: #Basophils Less than 0.03 10x3/uL (0.0-0.2); #Eosinophils Less than 0.03 10x3/uL (0.0-0.7); %Basophils 0.1 % (0.0-1.0); %Lymphocytes 1.1 % (21.0-51.0); Hematocrit 25.1 % (42.0-52.0); Hemoglobin 7.8 g/dL (14.0-18.0); Mean Corpuscular HGB CONC 31.1 g/dL (32.0-36.0); Mean Corpuscular Hemoglobin 29.3 pg (27.0-31.0); Mean Corpuscular Volume 94.4 fL (78.0-98.0); Mean Platelet Volume 10.1 fL (7.4-10.4); Platelet Count 157 10x3/uL (130-400); RBC Distribution Width 13.9 % (11.5-14.5); Red Blood Cell (RBC) Count 2.66 mill/uL (4.70-6.10)
[2024-08-13 04:45] LABS: ALT (SGPT) 21 U/L (8-55); AST (SGOT) 65 U/L (5-34); Albumin 2.1 g/dL (3.4-4.8); Alkaline Phosphatase 108 U/L (40-110); Anion Gap 13 mmol/L (10-20); BUN (Urea Nitrogen) 25 mg/dL (8.4-25.7); Bilirubin, Total 0.8 mg/dL (0.2-1.2); Calc. Creatinine Clearance 74 mL/min (70-130); Calcium 9.6 mg/dL (7.8-10.44); Carbon Dioxide 22 mmol/L (23-31); Chloride 104 mmol/L (98-107); Estimated GFR 51; Globulin 3.1 g/dL (2.4-3.5); Glucose 137 mg/dL (83-110); Potassium 5.6 mmol/L (3.5-5.1); Protein, Total 5.2 g/dL (5.8-8.1); Sodium 133 mmol/L (136-145)
[2024-08-13] MEDS: Cefepime 1 GM in Sodium Chloride 0.9% 100 ML IVPB SCH (05:06)
[2024-08-13] MEDS: Albumin 25% 25 GM (100 mL) BOT IVPB SCH (05:07)
[2024-08-13] MEDS: Famotidine/PF 20 mg/2ml Vial SLOW IVP SCH (08:19)
[2024-08-13] MEDS: Atorvastatin Calcium 40 MG TAB PO SCH (08:19)
[2024-08-13] MEDS: Famotidine 20 MG TAB PO SCH (08:20)
[2024-08-13] MEDS: Sodium Polystyrene Sulfonate 15 GM (60 mL) BOT PO SCH (09:46)
[2024-08-13] MEDS: Dofetilide 0.125 MG CAP PO SCH (09:47)
[2024-08-13] MEDS: Enoxaparin 40 MG (0.4 mL) SYRINGE SC SCH (09:48)
[2024-08-13] MEDS: QUEtiapine 25 MG TAB PO SCH (19:59)
[2024-08-14] MEDS: diphenhydrAMINE 50 MG/ML VIAL IVP SCH ×2 (01:29→02:15)
[2024-08-14 04:27] LABS: #Basophils Less than 0.03 10x3/uL (0.0-0.2); #Eosinophils Less than 0.03 10x3/uL (0.0-0.7); %Eosinophils 0.1 % (0.0-10.0); %Lymphocytes 0.8 % (21.0-51.0); %Neutrophils 96.9 % (42.0-75.0); Hematocrit 22.9 % (42.0-52.0); Hemoglobin 7.4 g/dL (14.0-18.0); Mean Corpuscular HGB CONC 32.3 g/dL (32.0-36.0); Mean Corpuscular Hemoglobin 29.4 pg (27.0-31.0); Mean Corpuscular Volume 90.9 fL (78.0-98.0); Mean Platelet Volume 10.4 fL (7.4-10.4); Platelet Count 151 10x3/uL (130-400); RBC Distribution Width 14.3 % (11.5-14.5); Red Blood Cell (RBC) Count 2.52 mill/uL (4.70-6.10)
[2024-08-14 04:41] LABS: Anion Gap 15 mmol/L (10-20); BUN (Urea Nitrogen) 23 mg/dL (8.4-25.7); Calc. Creatinine Clearance 87 mL/min (70-130); Calcium 9.7 mg/dL (7.8-10.44); Carbon Dioxide 22 mmol/L (23-31); Chloride 107 mmol/L (98-107); Estimated GFR 63; Glucose 96 mg/dL (83-110); Potassium 4.7 mmol/L (3.5-5.1); Sodium 139 mmol/L (136-145)
[2024-08-14] MEDS: Enoxaparin 40 MG (0.4 mL) SYRINGE SC SCH (08:59)
[2024-08-14] MEDS: Ondansetron PF 4 MG/2 ML Vial IVP PRN (09:44)
[2024-08-14] MEDS: Gabapentin 100 MG CAP PO SCH (21:07)
[2024-08-14] MEDS: Mirtazapine 15 MG TAB PO SCH (21:09)
[2024-08-15] MEDS: diphenhydrAMINE 50 MG/ML VIAL IVP SCH (01:44)
[2024-08-15 05:49] LABS: #Basophils Less than 0.03 10x3/uL (0.0-0.2); %Basophils 0.1 % (0.0-1.0); %Eosinophils 1.2 % (0.0-10.0); %Lymphocytes 3.1 % (21.0-51.0); %Monocytes 1.9 % (0.0-10.0); %Neutrophils 92.7 % (42.0-75.0); Hemoglobin 8.2 g/dL (14.0-18.0); Mean Corpuscular HGB CONC 31.5 g/dL (32.0-36.0); Mean Corpuscular Hemoglobin 29.7 pg (27.0-31.0); Mean Corpuscular Volume 94.2 fL (78.0-98.0); Mean Platelet Volume 10.3 fL (7.4-10.4); Platelet Count 160 10x3/uL (130-400); RBC Distribution Width 14.4 % (11.5-14.5); Red Blood Cell (RBC) Count 2.76 mill/uL (4.70-6.10)
[2024-08-15 06:29] LABS: Anion Gap 16 mmol/L (10-20); BUN (Urea Nitrogen) 23 mg/dL (8.4-25.7); Calc. Creatinine Clearance 81 mL/min (70-130); Calcium 10.3 mg/dL (7.8-10.44); Carbon Dioxide 21 mmol/L (23-31); Chloride 107 mmol/L (98-107); Estimated GFR 59; Glucose 89 mg/dL (83-110); Potassium 4.5 mmol/L (3.5-5.1); Sodium 139 mmol/L (136-145)
[2024-08-15 10:59] LABS: Pleural Fluid, Protein 2.6 g/dL
[2024-08-15 11:59] LABS: RBC Count-Automated (BF) 6037 /cu.mm; WBC/Nucleated-Auto (BF) 1223 /cu.mm
[2024-08-15 12:11] LABS: BF Color Yellow; Body Fluid Source Thoracentesis Fluid; Clarity Cloudy/Turbid (Clear); Tube # EDTA
[2024-08-15 12:37] LABS: Fluid, pH - Pleural Fld Greater than 7.500 (7.60 - 7.66)
[2024-08-15 12:59] LABS: BF Segmented Neutrophils 54 %; Cell Count Non Hematic 7 %; Eosinophils 1 %; Lymphocytes 38 %
[2024-08-16 05:48] LABS: #Basophils Less than 0.03 10x3/uL (0.0-0.2); %Basophils 0.2 % (0.0-1.0); %Eosinophils 1.7 % (0.0-10.0); %Lymphocytes 2.5 % (21.0-51.0); %Monocytes 2.3 % (0.0-10.0); %Neutrophils 92.4 % (42.0-75.0); Hematocrit 26.2 % (42.0-52.0); Hemoglobin 8.2 g/dL (14.0-18.0); Mean Corpuscular HGB CONC 31.3 g/dL (32.0-36.0); Mean Corpuscular Volume 92.6 fL (78.0-98.0); Mean Platelet Volume 10.6 fL (7.4-10.4); Platelet Count 173 10x3/uL (130-400); RBC Distribution Width 14.3 % (11.5-14.5); Red Blood Cell (RBC) Count 2.83 mill/uL (4.70-6.10)
[2024-08-16 06:06] LABS: Anion Gap 12 mmol/L (10-20); BUN (Urea Nitrogen) 20 mg/dL (8.4-25.7); Calc. Creatinine Clearance 93 mL/min (70-130); Calcium 10.4 mg/dL (7.8-10.44); Carbon Dioxide 23 mmol/L (23-31); Chloride 108 mmol/L (98-107); Estimated GFR 69; Glucose 92 mg/dL (83-110); Potassium 4.6 mmol/L (3.5-5.1); Sodium 138 mmol/L (136-145)
[2024-08-16] MEDS: Ondansetron ODT 4 MG TAB PO PRN (17:19)
[2024-08-16] MEDS: Cefepime 2 GM in Sodium Chloride 0.9% 100 ML IVPB SCH (17:19)
[2024-08-17] MEDS: diphenhydrAMINE 50 MG/ML VIAL IVP SCH (01:56)
[2024-08-17 07:40] LABS: #Basophils Less than 0.03 10x3/uL (0.0-0.2); %Basophils 0.1 % (0.0-1.0); %Eosinophils 1.2 % (0.0-10.0); %Lymphocytes 2.9 % (21.0-51.0); %Monocytes 3.4 % (0.0-10.0); %Neutrophils 91.7 % (42.0-75.0); Hematocrit 25.1 % (42.0-52.0); Mean Corpuscular HGB CONC 31.9 g/dL (32.0-36.0); Mean Corpuscular Hemoglobin 29.3 pg (27.0-31.0); Mean Corpuscular Volume 91.9 fL (78.0-98.0); Mean Platelet Volume 10.3 fL (7.4-10.4); Platelet Count 164 10x3/uL (130-400); RBC Distribution Width 14.1 % (11.5-14.5); Red Blood Cell (RBC) Count 2.73 mill/uL (4.70-6.10)
[2024-08-17 08:08] LABS: Anion Gap 10 mmol/L (10-20); BUN (Urea Nitrogen) 19 mg/dL (8.4-25.7); Calc. Creatinine Clearance 94 mL/min (70-130); Calcium 10.4 mg/dL (7.8-10.44); Carbon Dioxide 24 mmol/L (23-31); Chloride 106 mmol/L (98-107); Estimated GFR 70; Glucose 92 mg/dL (83-110); Potassium 4.6 mmol/L (3.5-5.1); Sodium 135 mmol/L (136-145)
[2024-08-17] MEDS: Cefepime 2 GM in Sodium Chloride 0.9% 100 ML IVPB SCH (12:51)
[2024-08-18 03:04] VITALS: TEMP 97.2
[2024-08-18 12:46] LABS: #Basophils Less than 0.03 10x3/uL (0.0-0.2); %Basophils 0.1 % (0.0-1.0); %Eosinophils 1.1 % (0.0-10.0); %Lymphocytes 2.7 % (21.0-51.0); %Monocytes 3.1 % (0.0-10.0); %Neutrophils 92.6 % (42.0-75.0); Hematocrit 25.2 % (42.0-52.0); Hemoglobin 7.9 g/dL (14.0-18.0); Mean Corpuscular HGB CONC 31.3 g/dL (32.0-36.0); Mean Corpuscular Volume 92.6 fL (78.0-98.0); Mean Platelet Volume 10.8 fL (7.4-10.4); Platelet Count 171 10x3/uL (130-400); RBC Distribution Width 14.1 % (11.5-14.5); Red Blood Cell (RBC) Count 2.72 mill/uL (4.70-6.10)
[2024-08-18 15:01] VITALS: BP 130/63
== END 2024-08-18 16:07 | disposition home or self-care (01) | DRG 186 ==
LOC: ERS 15:13 → CCU 20:34 → IMCU/EMU 08-13 20:40
PROVIDERS: ADMIT Student in an Organized Health Care Education/Training Program; ATTEND Family Medicine
PROC: 4A033R1 Measurement of Arterial Saturation, Peripheral, Percutaneous Approach (ICD-10-PCS; principal; 2024-08-12)
PROC: 0W9930Z Drainage of Right Pleural Cavity with Drainage Device, Percutaneous Approach (ICD-10-PCS; 2024-08-12)
DX: J94.8 Other specified pleural conditions (principal); G92.8 Other toxic encephalopathy; J96.01 Acute respiratory failure with hypoxia; C83.10 Mantle cell lymphoma, unspecified site; C34.90 Malignant neoplasm of unspecified part of unspecified bronchus or lung; N17.9 Acute kidney failure, unspecified; E87.1 Hypo-osmolality and hyponatremia; I48.19 Other persistent atrial fibrillation; K21.9 Gastro-esophageal reflux disease without esophagitis; I25.10 Atherosclerotic heart disease of native coronary artery without angina pectoris; E78.5 Hyperlipidemia, unspecified; Z96.652 Presence of left artificial knee joint; E87.5 Hyperkalemia; E83.52 Hypercalcemia; D64.9 Anemia, unspecified; T45.1X5A Adverse effect of antineoplastic and immunosuppressive drugs, initial encounter; N18.9 Chronic kidney disease, unspecified; I12.9 Hypertensive chronic kidney disease with stage 1 through stage 4 chronic kidney disease, or unspecified chronic kidney disease; Z90.49 Acquired absence of other specified parts of digestive tract; Z98.890 Other specified postprocedural states; Z82.49 Family history of ischemic heart disease and other diseases of the circulatory system
CPT/HCPCS: 32551; 36415; 36416; 36600; 71045; 71275; 80048; 80053; 81001; 82150; 82805; 82945; 83605; 83615; 83735; 83880; 83986; 84100; 84157; 84484; 84550; 85025; 85060; 87040; 87070; 87102; 87116; 87205; 87206; 87428; 88112; 88305; 89051; 93005; 93010; 94640; 96365; 96372; 96375; J0171; J0692; J1200; J1650; J2272; J2405; J3370; J7030; J7611; J8499; P9047; Q0162; Q9967

== ENCOUNTER 2024-08-26 10:02 | Inpatient (IN) | payer MEDICARE ==
[2024-08-26] MEDS ORDERED: Pantoprazole 40 MG VIAL ONE ×2 (10:39→10:40)
[2024-08-26 10:40] LABS: #Basophils 0.03 10x3/uL (0.0-0.2); %Basophils 0.5 % (0.0-1.0); %Eosinophils 1.8 % (0.0-10.0); %Lymphocytes 2.6 % (21.0-51.0); %Monocytes 8.2 % (0.0-10.0); %Neutrophils 86.4 % (42.0-75.0); Hematocrit 21.9 % (42.0-52.0); Mean Corpuscular Hemoglobin 28.9 pg (27.0-31.0); Mean Corpuscular Volume 90.5 fL (78.0-98.0); Mean Platelet Volume 9.6 fL (7.4-10.4); Platelet Count 395 10x3/uL (130-400); RBC Distribution Width 14.3 % (11.5-14.5); Red Blood Cell (RBC) Count 2.42 mill/uL (4.70-6.10)
[2024-08-26] MEDS ORDERED: Pantoprazole 80 MG, Admixture Fee 1 EACH in Sodium Chloride 0.9% 100 ML IVPB SCH (10:45)
[2024-08-26 11:00] LABS: ALT (SGPT) 16 U/L (8-55); AST (SGOT) 36 U/L (5-34); Albumin 2.2 g/dL (3.4-4.8); Alkaline Phosphatase 98 U/L (40-110); Anion Gap 13 mmol/L (10-20); BUN (Urea Nitrogen) 58 mg/dL (8.4-25.7); Bilirubin, Total 0.6 mg/dL (0.2-1.2); Calc. Creatinine Clearance 0 mL/min (70-130); Calcium 10.8 mg/dL (7.8-10.44); Carbon Dioxide 23 mmol/L (23-31); Chloride 99 mmol/L (98-107); Estimated GFR 20; Globulin 3.7 g/dL (2.4-3.5); Glucose 93 mg/dL (83-110); Lipase 23 U/L (8-78); Magnesium 1.7 mg/dL (1.6-2.6); Potassium 4.7 mmol/L (3.5-5.1); Protein, Total 5.9 g/dL (5.8-8.1); Sodium 130 mmol/L (136-145); Uric Acid 10.7 mg/dL (3.5-7.2)
[2024-08-26 11:30] LABS: Troponin I 0.015 ng/mL (< 0.028)
[2024-08-26] MEDS ORDERED: Sodium Chloride 0.9% 100 ML ONE (14:16)
[2024-08-26] MEDS ORDERED: cefTRIAXone (ROCEPHIN) 2 GM VIAL ONE (14:16)
[2024-08-26] MEDS ORDERED: fentaNYL 50 mcg/mL 1 mL Vial ONE (14:16)
[2024-08-26 15:55] LABS: Bilirubin Negative (Negative); Blood, Urine Negative (Negative); CAUTI Indications for Culture Acute Hematuria; Clarity Clear (Clear); Glucose, Urine (Dipstick) Normal (Negative); Ketone, Urine Negative (Negative); Leukocyte Negative Leu/uL (Negative); Nitrite Negative (Negative); Protein, Urine (Dipstick) 20 mg/dL (Neg-Trace); RBC/HPF 0-3 HPF (0-3); Specific Gravity, Urine 1.008 (1.002-1.036); Squamous Epithelial 0-3 HPF (0-3); Urobilinogen Normal mg/dL (Less than 2); WBC/HPF 0-3 HPF (0-3)
[2024-08-26 16:01] LABS: Bacteria/HPF 1+ HPF (None Seen); Urine Culture Reflex No No
[2024-08-26] MEDS ORDERED: Acetaminophen 650 MG Suppository PR PRN (16:42)
[2024-08-26] MEDS ORDERED: Acetaminophen 325 MG TAB PO PRN (16:42)
[2024-08-26] MEDS ORDERED: HYDROcodone/Acetaminophen 5/325 mg Tablet PO PRN (16:45)
[2024-08-26] MEDS ORDERED: Docusate 100 MG CAP PO PRN (17:31)
[2024-08-26] MEDS ORDERED: Preparation H Ointment 57 gram tube TOP PRN (17:32)
[2024-08-26 18:13] VITALS: BMI 35.7
[2024-08-26] MEDS: HYDROcodone/Acetaminophen 10/325 mg Tablet PO PRN (18:24)
[2024-08-26 20:07] LABS: ALT (SGPT) 15 U/L (8-55); AST (SGOT) 32 U/L (5-34); Albumin 2.1 g/dL (3.4-4.8); Alkaline Phosphatase 93 U/L (40-110); Anion Gap 13 mmol/L (10-20); BUN (Urea Nitrogen) 56 mg/dL (8.4-25.7); Bilirubin, Total 0.7 mg/dL (0.2-1.2); Calc. Creatinine Clearance 41 mL/min (70-130); Calcium 10.5 mg/dL (7.8-10.44); Carbon Dioxide 22 mmol/L (23-31); Chloride 102 mmol/L (98-107); Estimated GFR 25; Globulin 3.4 g/dL (2.4-3.5); Glucose 85 mg/dL (83-110); Potassium 4.6 mmol/L (3.5-5.1); Protein, Total 5.5 g/dL (5.8-8.1); Sodium 132 mmol/L (136-145)
[2024-08-26] MEDS: Gabapentin 100 MG CAP PO SCH (20:24)
[2024-08-26] MEDS: Aspirin 81 mg Enteric Coated Tablet PO SCH (20:25)
[2024-08-26] MEDS: Dofetilide 0.125 MG CAP PO SCH (21:13)
[2024-08-27] MEDS: Sodium Chloride 0.9% 1,000 ML IV SCH (00:06)
[2024-08-27] MEDS: HYDROcodone/Acetaminophen 10/325 mg Tablet PO PRN (00:06)
[2024-08-27 05:20] LABS: #Basophils 0.04 10x3/uL (0.0-0.2); %Basophils 0.8 % (0.0-1.0); %Eosinophils 1.9 % (0.0-10.0); %Lymphocytes 4.3 % (21.0-51.0); %Neutrophils 82.4 % (42.0-75.0); Mean Corpuscular HGB CONC 31.8 g/dL (32.0-36.0); Mean Corpuscular Hemoglobin 28.2 pg (27.0-31.0); Mean Corpuscular Volume 88.7 fL (78.0-98.0); Mean Platelet Volume 9.8 fL (7.4-10.4); Platelet Count 379 10x3/uL (130-400); RBC Distribution Width 15.9 % (11.5-14.5); Red Blood Cell (RBC) Count 2.48 mill/uL (4.70-6.10)
[2024-08-27 05:31] LABS: Anion Gap 11 mmol/L (10-20); BUN (Urea Nitrogen) 50 mg/dL (8.4-25.7); Calc. Creatinine Clearance 42 mL/min (70-130); Calcium 10.3 mg/dL (7.8-10.44); Carbon Dioxide 23 mmol/L (23-31); Chloride 104 mmol/L (98-107); Estimated GFR 26; Glucose 81 mg/dL (83-110); Potassium 4.7 mmol/L (3.5-5.1); Sodium 133 mmol/L (136-145); Uric Acid 5.5 mg/dL (3.5-7.2)
[2024-08-27] MEDS: Albumin 25% 25 GM (100 mL) BOT IVPB SCH (10:09)
[2024-08-27] MEDS: Atorvastatin Calcium 40 MG TAB PO SCH (10:09)
[2024-08-27] MEDS: CO Q-10 CAPSULE 100 MG PO SCH (10:10)
[2024-08-27] MEDS: Clopidogrel Bisulfate 75 MG TAB PO SCH (10:10)
[2024-08-27] MEDS: Finasteride 5 MG TAB PO SCH (10:10)
[2024-08-27] MEDS: Tamsulosin HCl 0.4 MG CAP PO SCH (10:10)
[2024-08-27] MEDS ORDERED: Bisacodyl 5 MG TAB PO PRN (13:11)
[2024-08-27] MEDS: Ondansetron PF 4 MG/2 ML Vial IVP PRN (13:29)
[2024-08-27] MEDS: Bisacodyl 5 MG TAB PO SCH (13:29)
[2024-08-27] MEDS: Mirtazapine 15 MG TAB PO SCH (20:10)
[2024-08-28] MEDS: Ondansetron ODT 4 MG TAB PO PRN (03:29)
[2024-08-28 03:46] LABS: #Basophils 0.04 10x3/uL (0.0-0.2); %Basophils 0.8 % (0.0-1.0); %Eosinophils 3.4 % (0.0-10.0); %Lymphocytes 4.4 % (21.0-51.0); %Monocytes 10.3 % (0.0-10.0); %Neutrophils 80.5 % (42.0-75.0); Hematocrit 23.6 % (42.0-52.0); Hemoglobin 7.3 g/dL (14.0-18.0); Mean Corpuscular HGB CONC 30.9 g/dL (32.0-36.0); Mean Corpuscular Hemoglobin 27.9 pg (27.0-31.0); Mean Corpuscular Volume 90.1 fL (78.0-98.0); Mean Platelet Volume 9.6 fL (7.4-10.4); Platelet Count 353 10x3/uL (130-400); RBC Distribution Width 15.9 % (11.5-14.5); Red Blood Cell (RBC) Count 2.62 mill/uL (4.70-6.10)
[2024-08-28 04:03] LABS: Anion Gap 11 mmol/L (10-20); BUN (Urea Nitrogen) 39 mg/dL (8.4-25.7); Calc. Creatinine Clearance 60 mL/min (70-130); Calcium 10.2 mg/dL (7.8-10.44); Carbon Dioxide 24 mmol/L (23-31); Chloride 106 mmol/L (98-107); Estimated GFR 40; Glucose 102 mg/dL (83-110); Potassium 4.5 mmol/L (3.5-5.1); Sodium 136 mmol/L (136-145)
[2024-08-28] MEDS ORDERED: Ipratropium/Albuterol 3 ML NEB NEB PRN (10:27)
[2024-08-28] MEDS: Furosemide 40 MG (4 mL) VIAL SLOW IVP SCH (11:57)
[2024-08-28] MEDS: Albumin 25% 25 GM (100 mL) BOT IVPB SCH (11:57)
[2024-08-28] MEDS: Ipratropium/Albuterol 3 ML NEB NEB SCH (14:27)
[2024-08-28] MEDS: diphenhydrAMINE 50 MG/ML VIAL IVP SCH (21:47)
[2024-08-29 04:17] LABS: #Basophils 0.04 10x3/uL (0.0-0.2); %Basophils 0.8 % (0.0-1.0); %Eosinophils 2.3 % (0.0-10.0); %Lymphocytes 5.2 % (21.0-51.0); %Neutrophils 77.7 % (42.0-75.0); Hematocrit 24.3 % (42.0-52.0); Hemoglobin 7.5 g/dL (14.0-18.0); Mean Corpuscular HGB CONC 30.9 g/dL (32.0-36.0); Mean Corpuscular Hemoglobin 28.1 pg (27.0-31.0); Mean Platelet Volume 9.7 fL (7.4-10.4); Platelet Count 342 10x3/uL (130-400); RBC Distribution Width 15.6 % (11.5-14.5); Red Blood Cell (RBC) Count 2.67 mill/uL (4.70-6.10)
[2024-08-29 04:41] LABS: Anion Gap 12 mmol/L (10-20); BUN (Urea Nitrogen) 32 mg/dL (8.4-25.7); Calc. Creatinine Clearance 61 mL/min (70-130); Calcium 11.2 mg/dL (7.8-10.44); Carbon Dioxide 26 mmol/L (23-31); Chloride 107 mmol/L (98-107); Estimated GFR 41; Glucose 116 mg/dL (83-110); Potassium 4.7 mmol/L (3.5-5.1); Sodium 140 mmol/L (136-145); Uric Acid 1.6 mg/dL (3.5-7.2)
[2024-08-29] MEDS ORDERED: dilTIAZem 125 MG in Sodium Chloride 0.9% 100 ML IVPB SCH (07:45)
[2024-08-29] MEDS: dilTIAZem 25 MG/5 ML VIAL SLOW IVP SCH (07:55)
[2024-08-29] MEDS: Diltiazem HCl/D5W 125 MG in Premix 1 BAG IVPB SCH (07:55)
[2024-08-29] MEDS: dilTIAZem 25 MG/5 ML VIAL ONE (07:57)
[2024-08-29] MEDS: Zoledronic Acid 4 MG in Sodium Chloride 0.9% 100 ML IVPB SCH (10:05)
[2024-08-29 10:26] VITALS: BP 143/66
[2024-08-29] MEDS: Lorazepam 2 MG/ML VIAL SLOW IVP PRN (10:31)
[2024-08-29] MEDS: Morphine 4 MG/ML VIAL SLOW IVP PRN (10:31)
[2024-08-29 12:26] VITALS: TEMP 97.3
== END 2024-08-29 13:11 | disposition hospice, inpatient (51) | DRG 682 ==
LOC: ERS 10:02 → MSONC 14:30 → IMCU/EMU 08-28 17:56
PROVIDERS: ADMIT Hospitalist; ATTEND Internal Medicine
PROC: 30233N1 Transfusion of Nonautologous Red Blood Cells into Peripheral Vein, Percutaneous Approach (ICD-10-PCS; principal; 2024-08-26)
DX: N17.9 Acute kidney failure, unspecified (principal); J96.01 Acute respiratory failure with hypoxia; C34.92 Malignant neoplasm of unspecified part of left bronchus or lung; C83.10 Mantle cell lymphoma, unspecified site; I48.20 Chronic atrial fibrillation, unspecified; E87.1 Hypo-osmolality and hyponatremia; Z51.5 Encounter for palliative care; I10 Essential (primary) hypertension; E78.5 Hyperlipidemia, unspecified; I25.10 Atherosclerotic heart disease of native coronary artery without angina pectoris; K21.9 Gastro-esophageal reflux disease without esophagitis; G47.33 Obstructive sleep apnea (adult) (pediatric); E88.3 Tumor lysis syndrome; Z96.652 Presence of left artificial knee joint; E83.52 Hypercalcemia; D63.0 Anemia in neoplastic disease; E87.70 Fluid overload, unspecified; Z87.891 Personal history of nicotine dependence; Z90.49 Acquired absence of other specified parts of digestive tract; Z98.52 Vasectomy status; Z92.3 Personal history of irradiation
CPT/HCPCS: 36415; 36430; 70450; 71045; 76770; 80048; 80053; 81001; 83605; 83615; 83690; 83735; 84443; 84484; 84550; 85025; 86850; 86900; 86901; 93005; 93010; 94640; 94660; 96374; 96375; J0696; J1200; J1940; J2060; J2272; J2405; J2470; J2783; J3010; J7030; J7620; J8499; P9016; P9047; Q0162

== ENCOUNTER 2024-08-29 13:27 | Inpatient (IN) | payer OTHER ==
[2024-08-29] MEDS ORDERED: Bisacodyl 10 MG SUPP PR PRN (14:44)
[2024-08-29] MEDS ORDERED: Acetaminophen 650 MG Suppository PR PRN (14:45)
[2024-08-29] MEDS ORDERED: diphenhydrAMINE 50 MG/ML VIAL IVP PRN (14:45)
[2024-08-29] MEDS ORDERED: Haloperidol Lactate 5 MG/ML VIAL SLOW IVP PRN (14:45)
[2024-08-29] MEDS ORDERED: Ondansetron PF 4 MG/2 ML Vial IVP PRN (14:45)
[2024-08-29] MEDS ORDERED: Hyoscyamine SL 0.125 MG TAB SL PRN (14:45)
[2024-08-29] MEDS ORDERED: Promethazine HCl 25 MG SUPP PR PRN (14:45)
[2024-08-29] MEDS: Lorazepam 2 MG/ML VIAL SLOW IVP PRN (14:53)
[2024-08-29] MEDS: Morphine 4 MG/ML VIAL SLOW IVP PRN (14:53)
[2024-08-29 18:36] VITALS: BP 136/67
== END 2024-08-29 19:33 | disposition expired | DRG 951 ==
LOC: IMCU/EMU 13:27 → T4-A 18:42
PROVIDERS: ADMIT Internal Medicine Nephrology; ATTEND Internal Medicine Nephrology
DX: Z51.5 Encounter for palliative care (principal); E88.3 Tumor lysis syndrome; N17.9 Acute kidney failure, unspecified; C34.90 Malignant neoplasm of unspecified part of unspecified bronchus or lung; E83.52 Hypercalcemia; I48.91 Unspecified atrial fibrillation; D64.9 Anemia, unspecified; I25.10 Atherosclerotic heart disease of native coronary artery without angina pectoris; K21.9 Gastro-esophageal reflux disease without esophagitis; G47.33 Obstructive sleep apnea (adult) (pediatric); I10 Essential (primary) hypertension; E78.5 Hyperlipidemia, unspecified; Z90.49 Acquired absence of other specified parts of digestive tract; Z98.890 Other specified postprocedural states; Z79.899 Other long term (current) drug therapy
CPT/HCPCS: 93005; 93010; J2060; J2272